=== PATIENT | male | born 1960 | race Caucasian/White ===

== ENCOUNTER 2022-08-16 19:35 | Inpatient (IN) | payer MEDICARE, SELFPAY ==
[2022-08-16 19:45] VITALS: BP 150/89; PULSE 91; RESP 16; TEMP 37.3; O2SAT 97; BMI 22.3
--- NOTE | 2022-08-16 19:57 | ED.NAVMDI1 ---
HPI - Nausea/Vomiting/Diarrhea General Chief complaint: Nausea/Vomiting/Diarrhea Stated complaint: DIARRHEA Time Seen by Provider: 08/16/22 19:57 Source: patient Mode of arrival: ambulance Limitations: physical limitation Limitations comment: contracted due to MS History of Present Illness HPI Narrative: pt presenting to us with the diarrhea with no vomiting no abdominal pain and no decreased by mouth intake, the patient have history of C. difficile that was treated in June and he still continued to have symptoms since then but over the last few days it got worse going up to ten bouts of diarrhea daily and his cannot take care of him at home by herself The main concern with home care the patient had no fever no abdominal pain there was no blood or mucus in stool Review of systems otherwise negative Related Data Home Medications Medication Instructions Recorded Confirmed acetaminophen 325 mg capsule 650 mg PO Q6H PRN pain 08/17/22 08/17/22 (Tylenol) aspirin 81 mg tablet,delayed 81 mg PO DAILY 08/17/22 08/17/22 release (Adult Aspirin Regimen) baclofen 20 mg tablet 20 mg PO BID 08/17/22 08/17/22 calcium carbonate-vitamin D3 See Rx Instructions PO DAILY 08/17/22 08/17/22 fluoxetine 20 mg capsule 20 mg PO DAILY 08/17/22 08/17/22 lisinopril 20 1 tab PO DAILY 08/17/22 08/17/22 mg-hydrochlorothiazide 25 mg tablet naproxen sodium 220 mg capsule 220 mg PO DAILY 08/17/22 08/17/22 (Aleve) oxybutynin chloride 5 mg tablet 5 mg PO DAILY 08/17/22 08/17/22 tizanidine 4 mg tablet 4 mg PO DAILY 08/17/22 08/17/22 tramadol 50 mg tablet 50 mg PO Q6H PRN pain 08/17/22 08/17/22 vitamin B complex (B 1 tab PO DAILY 08/17/22 08/17/22 Complex-Vitamin B12 tablet) Allergies Allergy/AdvReac Type Severity Reaction Status Date / Time No Known Drug Allergies Allergy Verified 08/16/22 19:50 Review of Systems ROS Status of ROS 10 or more systems reviewed and unremarkable except as noted in history and below PFSH PFSH Social History Highest level of school completed/degree received: high school graduate Exam Constitutional Vital Signs - 24 hr 08/16/22 19:45 08/16/22 20:52 08/16/22 20:53 Temperature 99.2 F Pulse Rate [Monitor] 91 H 90 Respiratory Rate 16 16 Blood Pressure [Right Arm] 150/89 H 129/81 H Pulse Oximetry 97 96 96 Oxygen Delivery Method Room Air Room Air Room Air 08/16/22 21:52 08/17/22 00:15 Temperature Pulse Rate [Monitor] 88 90 Respiratory Rate 16 16 Blood Pressure [Right Arm] 142/84 H 133/81 H Pulse Oximetry 97 96 Oxygen Delivery Method Room Air Room Air Psych Other: Nurses notes and vital signs reviewed and patient is not hypoxic. General: Well-appearing and in no apparent distress. Skin: Warm, dry, no pallor noted. No rash. Head: Normocephalic, atraumatic. Neck: Supple, non-tender. Eye: Pupils are equal, round and EOMI. No scleral icterus. Ears, Nose, Mouth, and Throat: TM are clear, no nasal mucosal hypertrophy. Oral mucosa is moist, no posterior oropharynx erythema, uvula is mid-line Cardiovascular: Regular Rate and Rhythm without murmur, gallop or rub. Respiratory: No accessory muscle use or respiratory distress. Lungs are clear to auscultation, no wheezing, rales or rhonchi Chest Wall: no tenderness Back: No midline thoracic or lumbar vertebral tenderness. No CVA tenderness Musculoskeletal: normal ROM, no calf or popliteal tenderness, no lower extremity edema/swelling GI: Abdomen is soft, non-distended. Normal bowel sounds. No masses appreciated. No tenderness to palpation. No rebound, guarding, or rigidity noted. Neurological: A&O x4. No cranial nerve dysfunction observed. No truncal ataxia. Moves all extremities. Sensation intact. Psychiatric: Cooperative and interactive. Normal mood and affect. Course Vital Signs Vital signs: Vital Signs Temperature 99.2 F 08/16/22 19:45 Pulse Rate 91 H 08/16/22 19:45 Respiratory Rate 16 08/16/22 19:45 Blood Pressure 150/89 H 08/16/22 19:45 Pulse Oximetry 97 08/16/22 19:45 Oxygen Delivery Method Room Air 08/16/22 19:45 Temperature 97.7 F 08/17/22 00:36 Pulse Rate 90 08/17/22 00:36 Respiratory Rate 20 08/17/22 00:36 Blood Pressure 125/78 H 08/17/22 00:36 Pulse Oximetry 93 L 08/17/22 00:36 Oxygen Delivery Method Room Air 08/17/22 00:36 MDM - Nausea/Vomiting/Diarrhea MDM Narrative Medical decision making narrative: the patient presented to us with diarrhea that has been chronic since June but got worse over the last few days to the point that his is not able to take care of him and he is not able to keep up with the diarrhea at home Patient as CBC and chemistry showed no acute significant pathology except for leukocytosis he was started and pill Lab Data Labs: Lab Results 08/16/22 08/16/22 Range/Units 20:19 22:50 WBC 14.7 H (4.0-11.0) 10^3/uL RBC 4.57 L (4.70-6.10) 10^6/uL Hgb 13.4 L (14.0-18.0) g/dL Hct 39.6 L (42.0-54.0) % MCV 86.7 (80.0-94.0) fL MCH 29.3 (25.9-34.0) pg MCHC 33.8 (29.9-35.2) g/dL RDW 12.9 (11.0-15.0) % Plt Count 245 (150-450) 10^3/uL MPV 9.4 L (9.5-13.5) fL Neut % (Auto) 75.8 H (43.0-75.0) % Lymph % (Auto) 8.5 L (20.5-60.0) % [place] % (Auto) 9.8 (1.7-12.0) % Eos % (Auto) 2.5 (0.9-7.0) % Baso % (Auto) 0.6 (0.2-2.0) % Neut # (Auto) 11.2 H (1.4-6.5) 10^3/uL Lymph # (Auto) 1.3 (1.2-3.8) 10^3/uL [place] # (Auto) 1.4 H (0.3-0.8) 10^3/uL Eos # (Auto) 0.4 (0.0-0.7) 10^3/uL Baso # (Auto) 0.1 (0.0-0.1) 10^3/uL Abs Immat Gran (auto) 0.41 H (0.00-0.03) 10^3/uL Imm/Tot Granulo (auto) 2.8 H (0.0-0.5) % Sodium 133 L (136-145) mmol/L Potassium 3.6 (3.5-5.1) mmol/L Chloride 97 L (98-107) mmol/L Carbon Dioxide 30.8 (21.0-32.0) mmol/L Anion Gap 8.8 BUN 13.0 (7.0-18.0) mg/dL Creatinine 0.86 (0.70-1.30) mg/dL Est GFR ( Amer) >60 (>=60) Est GFR (Non-Af Amer) >60 (>=60) BUN/Creatinine Ratio 15.1 Glucose 97 (74-106) mg/dL Lactate 0.9 (0.4-2.0) mmol/L Calcium 8.7 (8.5-10.1) mg/dL Total Bilirubin 0.4 (0.2-1.0) mg/dL AST 12 L (15-37) U/L ALT 14 L (16-63) U/L Alkaline Phosphatase 74 (46-116) U/L Total Protein 6.1 L (6.4-8.2) g/dL Albumin 2.8 L (3.4-5.0) g/dL Globulin 3.3 g/dL Albumin/Globulin Ratio 0.8 Lipase 51.0 L (73.0-393.0) U/L Urine Color Lt. yellow (YELLOW) Urine Clarity Clear (CLEAR) Urine pH 6.0 (5.0-9.0) Ur Specific [place] 1.015 (1.005-1.025) Urine Protein Negative (NEG/TRACE) mg/dL Urine Glucose (UA) Negative (NEGATIVE) mg/dL Urine Ketones Trace A (NEGATIVE) mg/dL Urine Occult Blood Negative (NEGATIVE) Urine Nitrite Negative (NEGATIVE) Urine Bilirubin Negative (NEGATIVE) Urine Urobilinogen 0.2 (0.2-1.0) EU/dL Ur Leukocyte Esterase Negative (NEGATIVE) Discharge Plan Discharge Chief Complaint: Nausea/Vomiting/Diarrhea Patient Disposition: Admitted As Inpatient Time of Disposition Decision: 23:00 Condition: Fair Discharge Date/Time: 08/17/22 00:30
--- NOTE | 2022-08-16 20:01 | PC.NURSE ---
Started by EMS.
[2022-08-16 20:38] LABS: Basophils Absolute Auto 0.1 10^3/uL (0.0-0.1); Basophils Percent Auto 0.6 % (0.2-2.0); Eosinophils Absolute Auto 0.4 10^3/uL (0.0-0.7); Eosinophils Percent Auto 2.5 % (0.9-7.0); Hematocrit 39.6 % (42.0-54.0); Hemoglobin 13.4 g/dL (14.0-18.0); Immature Granulocytes Abs Auto 0.41 10^3/uL (0.00-0.03); Immature Granulocytes Pct Auto 2.8 % (0.0-0.5); Lymphocytes Absolute Auto 1.3 10^3/uL (1.2-3.8); Lymphocytes Percent Auto 8.5 % (20.5-60.0); Mean Corpuscular HGB Conc 33.8 g/dL (29.9-35.2); Mean Corpuscular Hemoglobin 29.3 pg (25.9-34.0); Mean Corpuscular Volume 86.7 fL (80.0-94.0); Mean Platelet Volume 9.4 fL (9.5-13.5); Monocytes Absolute Auto 1.4 10^3/uL (0.3-0.8); Monocytes Percent Auto 9.8 % (1.7-12.0); Neutrophils Absolute Auto 11.2 10^3/uL (1.4-6.5); Neutrophils Percent Auto 75.8 % (43.0-75.0); Platelet Count 245 10^3/uL (150-450); Red Blood Count 4.57 10^6/uL (4.70-6.10); Red Cell Distribution Width 12.9 % (11.0-15.0); White Blood Count 14.7 10^3/uL (4.0-11.0)
[2022-08-16] MEDS: 0.9 % SODIUM CHLORIDE 1,000 ML 999 ML IV (20:40)
[2022-08-16 20:50] LABS: Alanine Aminotransferase 14 U/L (16-63); Albumin Globulin Ratio 0.8; Albumin Level 2.8 g/dL (3.4-5.0); Alkaline Phosphatase 74 U/L (46-116); Anion Gap 8.8; Aspartate Amino Transferase 12 U/L (15-37); BUN Creatinine Ratio 15.1; Bilirubin Total 0.4 mg/dL (0.2-1.0); Calcium 8.7 mg/dL (8.5-10.1); Carbon Dioxide 30.8 mmol/L (21.0-32.0); Chloride 97 mmol/L (98-107); Estimated GFR (African America >60 (>=60); Estimated GFR (Non-African Ame >60 (>=60); Globulin 3.3 g/dL; Glucose 97 mg/dL (74-106); Potassium 3.6 mmol/L (3.5-5.1); Sodium 133 mmol/L (136-145); Total Protein 6.1 g/dL (6.4-8.2)
[2022-08-16 20:52] VITALS: BP 129/81; PULSE 90; RESP 16; O2SAT 96
[2022-08-16 20:53] VITALS: O2SAT 96
[2022-08-16 20:54] LABS: Lactate/Lactic Acid 0.9 mmol/L (0.4-2.0)
[2022-08-16 21:52] VITALS: BP 142/84; PULSE 88; RESP 16; O2SAT 97
[2022-08-16 23:30] LABS: Bilirubin Urine NEGATIVE (NEGATIVE); Blood Urine NEGATIVE (NEGATIVE); Clarity Urine CLEAR (CLEAR); Color Urine LT. YELLOW (YELLOW); Glucose Urine UA NEGATIVE (NEGATIVE); Ketones Urine TRACE mg/dL (NEGATIVE); Leukocyte Esterase Urine NEGATIVE (NEGATIVE); Nitrite Urine NEGATIVE (NEGATIVE); Protein Urine NEGATIVE (NEG/TRACE); Specific Gravity Urine 1.015 (1.005-1.025); Urobilinogen Urine 0.2 EU/dL (0.2-1.0)
[2022-08-16 23:33] LABS: Urine Microscopic Indicated NO
[2022-08-17] VITALS (9 sets, daily range): BP systolic 68–146; BP diastolic 48–87; PULSE 67–93; RESP 14–20; TEMP 36.5–36.8; O2SAT 93–97; BMI 20.1
--- NOTE | 2022-08-17 00:12 | PC.NURSE ---
Has has 3 diarrhea stools since admission. Gela care provided
--- NOTE | 2022-08-17 01:15 | ED_ITS ---
HPI - Nausea/Vomiting/Diarrhea General Chief complaint: Nausea/Vomiting/Diarrhea Stated complaint: DIARRHEA Time Seen by Provider: 08/16/22 19:57 Source: patient Mode of arrival: ambulance Limitations: physical limitation History of Present Illness HPI Narrative: pt presenting to us with the diarrhea with no vomiting no abdominal pain and no decreased by mouth intake, the patient have history of C. difficile that was treated in June and he still continued to have symptoms since then but over the last few days it got worse going up to ten bouts of diarrhea daily and his cannot take care of him at home by herself The main concern with home care the patient had no fever no abdominal pain there was no blood or mucus in stool Review of systems otherwise negative Related Data Home Medications Medication Instructions Recorded Confirmed acetaminophen 325 mg capsule 650 mg PO Q6H PRN pain 08/17/22 08/17/22 (Tylenol) aspirin 81 mg tablet,delayed 81 mg PO DAILY 08/17/22 08/17/22 release (Adult Aspirin Regimen) baclofen 20 mg tablet 20 mg PO BID 08/17/22 08/17/22 calcium carbonate-vitamin D3 See Rx Instructions PO DAILY 08/17/22 08/17/22 fluoxetine 20 mg capsule 20 mg PO DAILY 08/17/22 08/17/22 lisinopril 20 1 tab PO DAILY 08/17/22 08/17/22 mg-hydrochlorothiazide 25 mg tablet naproxen sodium 220 mg capsule 220 mg PO DAILY 08/17/22 08/17/22 (Aleve) oxybutynin chloride 5 mg tablet 5 mg PO DAILY 08/17/22 08/17/22 tizanidine 4 mg tablet 4 mg PO DAILY 08/17/22 08/17/22 tramadol 50 mg tablet 50 mg PO Q6H PRN pain 08/17/22 08/17/22 vitamin B complex (B 1 tab PO DAILY 08/17/22 08/17/22 Complex-Vitamin B12 tablet) Allergies Allergy/AdvReac Type Severity Reaction Status Date / Time No Known Drug Allergies Allergy Verified 08/16/22 19:50 Review of Systems ROS Status of ROS 10 or more systems reviewed and unremarkable except as noted in history and below [facility] Medical History (Updated 08/17/22 @ 01:14 by Lindsey Tovar MD) Family History (Updated 08/17/22 @ 01:10 by Lynda Albright) Family/Other Family history of CHF (congestive heart failure) Other Family history of myocardial infarction Family history of stroke Social History (Updated 08/17/22 @ 01:09 by Lynda Albright) Within the past year, how often did you have a drink containing alcohol: never Score interpretation: A score less than 4 is consistent with normal alcohol consumption. Smoking status: Never smoker Non-prescribed substance use: denies use Previous occupational history: disabled Highest level of school completed/degree received: high school graduate Are you now , , , , never or living with a partner: In a typical week, how many times do you talk on the telephone with family, friends, or neighbors: 3 or more times per week How often do you get together with friends or relatives: 3 or more times per week How often do you attend caodaism or synagogue services: 4 or more times per year Do you belong to any clubs or organizations such as caodaism groups unions, [employer] or athletic groups, or school groups: yes Total score: 4 Score interpretation: A score of greater than or equal to 2 indicates the lowest level of social isolation. Little interest or pleasure in doing things: not at all Feeling down, depressed, or hopeless: not at all Feel stressed/tense/nervous/anxious/difficulty sleeping: not at all Do you think of yourself as: straight/heterosexual Gender Identity: male Exam Narrative Exam Narrative: Nurses notes and vital signs reviewed and patient is not hypoxic. General: Well-appearing and in no apparent distress. Skin: Warm, dry, no pallor noted. No rash. Head: Normocephalic, atraumatic. Neck: Supple, non-tender. Eye: Pupils are equal, round and EOMI. No scleral icterus. Ears, Nose, Mouth, and Throat: TM are clear, no nasal mucosal hypertrophy. Oral mucosa is moist, no posterior oropharynx erythema, uvula is mid-line Cardiovascular: Regular Rate and Rhythm without murmur, gallop or rub. Respiratory: No accessory muscle use or respiratory distress. Lungs are clear to auscultation, no wheezing, rales or rhonchi Chest Wall: no tenderness Back: No midline thoracic or lumbar vertebral tenderness. No CVA tenderness Musculoskeletal: normal ROM, no calf or popliteal tenderness, no lower extremity edema/swelling GI: Abdomen is soft, non-distended. Normal bowel sounds. No masses appreciated. No tenderness to palpation. No rebound, guarding, or rigidity noted. Neurological: A&O x4. No cranial nerve dysfunction observed. No truncal ataxia. Moves all extremities. Sensation intact. Psychiatric: Cooperative and interactive. Normal mood and affect. Constitutional Vital Signs - 24 hr 08/16/22 19:45 08/16/22 20:52 08/16/22 20:53 Temperature 99.2 F Pulse Rate [Monitor] 91 H 90 Respiratory Rate 16 16 Blood Pressure [Right Arm] 150/89 H 129/81 H Pulse Oximetry 97 96 96 Oxygen Delivery Method Room Air Room Air Room Air 08/16/22 21:52 08/17/22 00:15 Temperature Pulse Rate [Monitor] 88 90 Respiratory Rate 16 16 Blood Pressure [Right Arm] 142/84 H 133/81 H Pulse Oximetry 97 96 Oxygen Delivery Method Room Air Room Air Course Vital Signs Vital signs: Vital Signs Temperature 99.2 F 08/16/22 19:45 Pulse Rate 91 H 08/16/22 19:45 Respiratory Rate 16 08/16/22 19:45 Blood Pressure 150/89 H 08/16/22 19:45 Pulse Oximetry 97 08/16/22 19:45 Oxygen Delivery Method Room Air 08/16/22 19:45 Temperature 97.7 F 08/17/22 00:36 Pulse Rate 90 08/17/22 00:36 Respiratory Rate 20 08/17/22 00:36 Blood Pressure 125/78 H 08/17/22 00:36 Pulse Oximetry 93 L 08/17/22 00:36 Oxygen Delivery Method Room Air 08/17/22 00:36 MDM - Nausea/Vomiting/Diarrhea MDM Narrative Medical decision making narrative: the patient presented to us with diarrhea that has been chronic since June but got worse over the last few days to the point that his is not able to take care of him and he is not able to keep up with the diarrhea at home Patient as CBC and chemistry showed no acute significant pathology except for leukocytosis pt will be admitted----case discussed with Dr Grissom and will be admitted under Dr Lee Lab Data Labs: Lab Results 08/16/22 08/16/22 Range/Units 20:19 22:50 WBC 14.7 H (4.0-11.0) 10^3/uL RBC 4.57 L (4.70-6.10) 10^6/uL Hgb 13.4 L (14.0-18.0) g/dL Hct 39.6 L (42.0-54.0) % MCV 86.7 (80.0-94.0) fL MCH 29.3 (25.9-34.0) pg MCHC 33.8 (29.9-35.2) g/dL RDW 12.9 (11.0-15.0) % Plt Count 245 (150-450) 10^3/uL MPV 9.4 L (9.5-13.5) fL Neut % (Auto) 75.8 H (43.0-75.0) % Lymph % (Auto) 8.5 L (20.5-60.0) % [place] % (Auto) 9.8 (1.7-12.0) % Eos % (Auto) 2.5 (0.9-7.0) % Baso % (Auto) 0.6 (0.2-2.0) % Neut # (Auto) 11.2 H (1.4-6.5) 10^3/uL Lymph # (Auto) 1.3 (1.2-3.8) 10^3/uL [place] # (Auto) 1.4 H (0.3-0.8) 10^3/uL Eos # (Auto) 0.4 (0.0-0.7) 10^3/uL Baso # (Auto) 0.1 (0.0-0.1) 10^3/uL Abs Immat Gran (auto) 0.41 H (0.00-0.03) 10^3/uL Imm/Tot Granulo (auto) 2.8 H (0.0-0.5) % Sodium 133 L (136-145) mmol/L Potassium 3.6 (3.5-5.1) mmol/L Chloride 97 L (98-107) mmol/L Carbon Dioxide 30.8 (21.0-32.0) mmol/L Anion Gap 8.8 BUN 13.0 (7.0-18.0) mg/dL Creatinine 0.86 (0.70-1.30) mg/dL Est GFR ( Amer) >60 (>=60) Est GFR (Non-Af Amer) >60 (>=60) BUN/Creatinine Ratio 15.1 Glucose 97 (74-106) mg/dL Lactate 0.9 (0.4-2.0) mmol/L Calcium 8.7 (8.5-10.1) mg/dL Total Bilirubin 0.4 (0.2-1.0) mg/dL AST 12 L (15-37) U/L ALT 14 L (16-63) U/L Alkaline Phosphatase 74 (46-116) U/L Total Protein 6.1 L (6.4-8.2) g/dL Albumin 2.8 L (3.4-5.0) g/dL Globulin 3.3 g/dL Albumin/Globulin Ratio 0.8 Lipase 51.0 L (73.0-393.0) U/L Urine Color Lt. yellow (YELLOW) Urine Clarity Clear (CLEAR) Urine pH 6.0 (5.0-9.0) Ur Specific [place] 1.015 (1.005-1.025) Urine Protein Negative (NEG/TRACE) mg/dL Urine Glucose (UA) Negative (NEGATIVE) mg/dL Urine Ketones Trace A (NEGATIVE) mg/dL Urine Occult Blood Negative (NEGATIVE) Urine Nitrite Negative (NEGATIVE) Urine Bilirubin Negative (NEGATIVE) Urine Urobilinogen 0.2 (0.2-1.0) EU/dL Ur Leukocyte Esterase Negative (NEGATIVE) Discharge Plan Discharge Chief Complaint: Nausea/Vomiting/Diarrhea Clinical Impression: C. difficile colitis Patient Disposition: Admitted As Inpatient Time of Disposition Decision: 23:00 Condition: Fair Discharge Date/Time: 08/17/22 00:30
--- NOTE | 2022-08-17 01:18 | ED.NAVMDI1 ---
HPI - Nausea/Vomiting/Diarrhea General Chief complaint: Nausea/Vomiting/Diarrhea Stated complaint: DIARRHEA Time Seen by Provider: 08/16/22 19:57 Source: patient Mode of arrival: ambulance Limitations: physical limitation Limitations comment: contracted due to MS Related Data Home Medications Medication Instructions Recorded Confirmed acetaminophen 325 mg capsule 650 mg PO Q6H PRN pain 08/17/22 08/17/22 (Tylenol) aspirin 81 mg tablet,delayed 81 mg PO DAILY 08/17/22 08/17/22 release (Adult Aspirin Regimen) baclofen 20 mg tablet 20 mg PO BID 08/17/22 08/17/22 calcium carbonate-vitamin D3 See Rx Instructions PO DAILY 08/17/22 08/17/22 fluoxetine 20 mg capsule 20 mg PO DAILY 08/17/22 08/17/22 lisinopril 20 1 tab PO DAILY 08/17/22 08/17/22 mg-hydrochlorothiazide 25 mg tablet naproxen sodium 220 mg capsule 220 mg PO DAILY 08/17/22 08/17/22 (Aleve) oxybutynin chloride 5 mg tablet 5 mg PO DAILY 08/17/22 08/17/22 tizanidine 4 mg tablet 4 mg PO DAILY 08/17/22 08/17/22 tramadol 50 mg tablet 50 mg PO Q6H PRN pain 08/17/22 08/17/22 vitamin B complex (B 1 tab PO DAILY 08/17/22 08/17/22 Complex-Vitamin B12 tablet) Allergies Allergy/AdvReac Type Severity Reaction Status Date / Time No Known Drug Allergies Allergy Verified 08/16/22 19:50 [facility] Medical History (Updated 08/17/22 @ 01:14 by Lindsey Tovar MD) Family History (Updated 08/17/22 @ 01:10 by Lynda Albright) Family/Other Family history of CHF (congestive heart failure) Other Family history of myocardial infarction Family history of stroke Social History (Updated 08/17/22 @ 01:09 by Lynda Albrihgt) Within the past year, how often did you have a drink containing alcohol: never Score interpretation: A score less than 4 is consistent with normal alcohol consumption. Smoking status: Never smoker Non-prescribed substance use: denies use Previous occupational history: disabled Highest level of school completed/degree received: high school graduate Are you now , , , , never or living with a partner: In a typical week, how many times do you talk on the telephone with family, friends, or neighbors: 3 or more times per week How often do you get together with friends or relatives: 3 or more times per week How often do you attend jehovah's witness or yarsani services: 4 or more times per year Do you belong to any clubs or organizations such as jehovah's witness groups unions, fraternal or athletic groups, or school groups: yes Total score: 4 Score interpretation: A score of greater than or equal to 2 indicates the lowest level of social isolation. Little interest or pleasure in doing things: not at all Feeling down, depressed, or hopeless: not at all Feel stressed/tense/nervous/anxious/difficulty sleeping: not at all Do you think of yourself as: straight/heterosexual Gender Identity: male Exam Constitutional Vital Signs - 24 hr 08/16/22 19:45 08/16/22 20:52 08/16/22 20:53 Temperature 99.2 F Pulse Rate [Monitor] 91 H 90 Respiratory Rate 16 16 Blood Pressure [Right Arm] 150/89 H 129/81 H Pulse Oximetry 97 96 96 Oxygen Delivery Method Room Air Room Air Room Air 08/16/22 21:52 08/17/22 00:15 Temperature Pulse Rate [Monitor] 88 90 Respiratory Rate 16 16 Blood Pressure [Right Arm] 142/84 H 133/81 H Pulse Oximetry 97 96 Oxygen Delivery Method Room Air Room Air Course Vital Signs Vital signs: Vital Signs Temperature 99.2 F 08/16/22 19:45 Pulse Rate 91 H 08/16/22 19:45 Respiratory Rate 16 08/16/22 19:45 Blood Pressure 150/89 H 08/16/22 19:45 Pulse Oximetry 97 08/16/22 19:45 Oxygen Delivery Method Room Air 08/16/22 19:45 Temperature 97.7 F 08/17/22 00:36 Pulse Rate 90 08/17/22 00:36 Respiratory Rate 20 08/17/22 00:36 Blood Pressure 125/78 H 08/17/22 00:36 Pulse Oximetry 93 L 08/17/22 00:36 Oxygen Delivery Method Room Air 08/17/22 00:36 MDM - Nausea/Vomiting/Diarrhea Lab Data Labs: Lab Results 08/16/22 08/16/22 Range/Units 20:19 22:50 WBC 14.7 H (4.0-11.0) 10^3/uL RBC 4.57 L (4.70-6.10) 10^6/uL Hgb 13.4 L (14.0-18.0) g/dL Hct 39.6 L (42.0-54.0) % MCV 86.7 (80.0-94.0) fL MCH 29.3 (25.9-34.0) pg MCHC 33.8 (29.9-35.2) g/dL RDW 12.9 (11.0-15.0) % Plt Count 245 (150-450) 10^3/uL MPV 9.4 L (9.5-13.5) fL Neut % (Auto) 75.8 H (43.0-75.0) % Lymph % (Auto) 8.5 L (20.5-60.0) % [place] % (Auto) 9.8 (1.7-12.0) % Eos % (Auto) 2.5 (0.9-7.0) % Baso % (Auto) 0.6 (0.2-2.0) % Neut # (Auto) 11.2 H (1.4-6.5) 10^3/uL Lymph # (Auto) 1.3 (1.2-3.8) 10^3/uL [place] # (Auto) 1.4 H (0.3-0.8) 10^3/uL Eos # (Auto) 0.4 (0.0-0.7) 10^3/uL Baso # (Auto) 0.1 (0.0-0.1) 10^3/uL Abs Immat Gran (auto) 0.41 H (0.00-0.03) 10^3/uL Imm/Tot Granulo (auto) 2.8 H (0.0-0.5) % Sodium 133 L (136-145) mmol/L Potassium 3.6 (3.5-5.1) mmol/L Chloride 97 L (98-107) mmol/L Carbon Dioxide 30.8 (21.0-32.0) mmol/L Anion Gap 8.8 BUN 13.0 (7.0-18.0) mg/dL Creatinine 0.86 (0.70-1.30) mg/dL Est GFR ( Amer) >60 (>=60) Est GFR (Non-Af Amer) >60 (>=60) BUN/Creatinine Ratio 15.1 Glucose 97 (74-106) mg/dL Lactate 0.9 (0.4-2.0) mmol/L Calcium 8.7 (8.5-10.1) mg/dL Total Bilirubin 0.4 (0.2-1.0) mg/dL AST 12 L (15-37) U/L ALT 14 L (16-63) U/L Alkaline Phosphatase 74 (46-116) U/L Total Protein 6.1 L (6.4-8.2) g/dL Albumin 2.8 L (3.4-5.0) g/dL Globulin 3.3 g/dL Albumin/Globulin Ratio 0.8 Lipase 51.0 L (73.0-393.0) U/L Urine Color Lt. yellow (YELLOW) Urine Clarity Clear (CLEAR) Urine pH 6.0 (5.0-9.0) Ur Specific [place] 1.015 (1.005-1.025) Urine Protein Negative (NEG/TRACE) mg/dL Urine Glucose (UA) Negative (NEGATIVE) mg/dL Urine Ketones Trace A (NEGATIVE) mg/dL Urine Occult Blood Negative (NEGATIVE) Urine Nitrite Negative (NEGATIVE) Urine Bilirubin Negative (NEGATIVE) Urine Urobilinogen 0.2 (0.2-1.0) EU/dL Ur Leukocyte Esterase Negative (NEGATIVE) Discharge Plan Discharge Chief Complaint: Nausea/Vomiting/Diarrhea Clinical Impression: C. difficile colitis Patient Disposition: Admitted As Inpatient Time of Disposition Decision: 23:00 Condition: Fair Discharge Date/Time: 08/17/22 00:30
--- NOTE | 2022-08-17 02:28 | P.PN_ITS ---
Progress Note: Subjective Subjective Interval history: CC: Diarrhea HPI: 62 year old male with history of multiple sclerosis, bed bound with contractures, weakness and chronic pain/muscle spasms, hypertension and C .diff 2 months ago who presents with persistent diarrhea. apparently patient completed treatment for C diff without improvement in diarrhea, continues to have 5-10 bowels/day, watery and sometimes mushy, no abdominal pain, nausea, vomiting, diarrhea. (caregiver) unable to continue take care of him. Was given fiber to bulk his stools without benefit. denies any abdominal surgeries or history of IBD. in the Er, vitals stable, labs remarkable for WBC ~ 15k. given fluids ROS: negative except for HPI Past medical/surgical history: no surgeries, MS, HTN, chronic pain Shx: lives with (caregiver), denies tobacco, etoh use FHx: non-contributory to today visit. Exam Narrative Exam Narrative: GEN: lying in bed, AO x3 no distress HEENT: NC/AT, trachea midline CVS: RRR, no edema Lungs: normal respiratory effort, bilateral air entry Gi: soft, non tender Neuro: generalized weakness, strength better right arm. contractures skin: healing sacral pressure sore Constitutional Vital Signs - 24 hr 08/16/22 19:45 08/16/22 20:52 08/16/22 20:53 Temperature 99.2 F Pulse Rate Pulse Rate [Monitor] 91 H 90 Respiratory Rate 16 16 Blood Pressure [Right Arm] 150/89 H 129/81 H Pulse Oximetry 97 96 96 Oxygen Delivery Method Room Air Room Air Room Air 08/16/22 21:52 08/17/22 00:15 08/17/22 00:36 Temperature 97.7 F Pulse Rate 90 Pulse Rate [Monitor] 88 90 Respiratory Rate 16 16 20 Blood Pressure [Right Arm] 142/84 H 133/81 H 125/78 H Pulse Oximetry 97 96 93 L Oxygen Delivery Method Room Air Room Air Room Air 08/17/22 00:36 Temperature Pulse Rate Pulse Rate [Monitor] Respiratory Rate Blood Pressure [Right Arm] Pulse Oximetry Oxygen Delivery Method Room Air Progress Note: Objective Labs Labs: Short CBC 08/16/22 Range/Units 20:19 WBC 14.7 H (4.0-11.0) 10^3/uL Hgb 13.4 L (14.0-18.0) g/dL Hct 39.6 L (42.0-54.0) % Plt Count 245 (150-450) 10^3/uL BMP 08/16/22 20:19 Sodium 133 L Potassium 3.6 Chloride 97 L Carbon Dioxide 30.8 BUN 13.0 Creatinine 0.86 Glucose 97 Calcium 8.7 Liver Function 08/16/22 Range/Units 20:19 Total Bilirubin 0.4 (0.2-1.0) mg/dL AST 12 L (15-37) U/L ALT 14 L (16-63) U/L Alkaline Phosphatase 74 (46-116) U/L Albumin 2.8 L (3.4-5.0) g/dL Urine 08/16/22 Range/Units 22:50 Urine Color Lt. yellow (YELLOW) Urine Clarity Clear (CLEAR) Urine pH 6.0 (5.0-9.0) Ur Specific [place] 1.015 (1.005-1.025) Urine Protein Negative (NEG/TRACE) mg/dL Urine Glucose (UA) Negative (NEGATIVE) mg/dL Progress Note: A&P Assessment and Plan (1) C. difficile diarrhea: Assessment and Plan: check gi panel. consider ct abdomen start empiric po vancomycin. C diff precautions (2) Hypertension: Assessment and Plan: resume home BP meds with hold parameters (3) Multiple sclerosis: Assessment and Plan: bed bound, superficial back sore healing (4) C. difficile colitis: Plan DVT ppx- lovenox Full Code Home medications ordered communications: discussed with ER doctor, bedside nurse, patient updated of plan of care, all questions answered to their satisfaction disposition- home Vs ECF when medically stable telemedicine clause: As the provider of this telehealth evaluation, requested by the patient evaluating physician, I attest that i introduced myself to the patient, provided my credentials and determined that telemedicine via a [address] interactive audio and video platform is an appropriate and effective means of providing this service. I reviewed the patient chart and had a discussion with the member of the patient treatment team. the patient and I mutually agreed with continuation of this evaluation via telemedicine. the patient consented for the telemedicine evaluation. this virtual encounter was taken place from [place] and lasted about 30 minutes, the nurse was present during the entire time of the encounter and was able to move the stethoscope in appropriate directions. the patient was evaluated at 0210 [facility] I conducted this encounter from [[place] ] via secure live, [id number] video conference with the patient, CHARGE TEST-CHARGES located at [facility]. Prior to the interview, the risks and benefits of telemedicine were discussed with the patient and verbal consent was obtained.
[2022-08-17] MEDS: LACTATED RINGER'S SOLUTION 1,000 ML 125 ML IV ×3 (04:37→21:42)
--- NOTE | 2022-08-17 08:29 | CT_ITS ---
[address] [address] Patient Name: SARINA RODRIGUEZ MRN: [id number] date: 1960 Sex: M Assigned Patient Location: [place] Current Patient Location: [place] Accession/Order Number: [id number] Exam Date: 08/17/2022 14:10 Report Date: 08/17/2022 15:05 At the request of: SHAIKH JOSÉ Procedure: CT abdomen pelvis w con EXAM: CT abdomen pelvis w con HISTORY: Abdominal pain COMPARISON: 07/15/2022 TECHNIQUE: Axial CT imaging was performed through the abdomen and pelvis with intravenous contrast. Multiplanar reformats were performed. Dose reduction techniques were achieved by using automated exposure control and/or adjustment of mA and/or kV according to patient size and/or use of iterative reconstruction technique. FINDINGS: Lung bases: Mild, dependent opacities at the lung bases have appearance most suggestive of atelectasis. GI upper: Unremarkable. Liver: Normal size and contour. Gallbladder: No significant abnormality. No cholelithiasis. Biliary system: No intra or extrahepatic biliary ductal dilatation. Spleen: Normal size. Pancreas: Unremarkable. Adrenal glands: Normal adrenal glands. Kidneys/ureters: Normal contours. No hydronephrosis. No nephrolithiasis or ureterolithiasis. Vessels: No aneurysm. Lymph Nodes: There is a 0.9 cm left posterior perirectal lymph node (series 3, image 120). There are additional lymph nodes at the rectosigmoid junction measuring up to 1.2 cm, can be reactive or metastasis. Small bowel: No wall thickening or dilatation. Colon: Redemonstration of severe circumferential wall thickening of the rectum with mucosal thickening and surrounding fat stranding, may represent proctitis. There is a 2.5 cm intraluminal polypoid lesion arising from the anterior distal sigmoid (series 3, image 113), similar to the prior study, representing benign or malignant polyp. Correlation with sigmoidoscopy and biopsy is recommended. Appendix: No findings of appendicitis. Peritoneal cavity: No free fluid or pneumoperitoneum. Lower : Unremarkable. Bones: No acute bony abnormality. Soft tissues: No acute finding. Additional findings: None. IMPRESSION: Persistent severe circumferential wall thickening of the rectum with mucosal thickening and surrounding fat stranding, may represent proctitis. Unchanged 2.5 cm intraluminal polypoid lesion arising from the anterior distal sigmoid, representing benign or malignant polyp. Correlation with sigmoidoscopy and biopsy is recommended. Perirectal and perisigmoid lymphadenopathy measuring up to 1.2 cm, can be reactive or metastatic. . Electronically authenticated by: MARILU ANDRES Date: 08/17/2022 15:05
[2022-08-17] MEDS: ENOXAPARIN SODIUM 40 MG/0.4 ML SYRINGE SUBQ (09:30)
[2022-08-17] MEDS: OXYBUTYNIN CHLORIDE 5 MG TAB XL PO (09:31)
[2022-08-17] MEDS: L. ACIDOPHILUS/L.BULGARICUS 1 PACKET GRAN.PACK PO ×2 (09:31→21:43)
[2022-08-17] MEDS: TIZANIDINE HCL 4 MG TABLET PO (09:32)
[2022-08-17] MEDS: LISINOPRIL 20 MG TABLET PO (09:32)
[2022-08-17 09:33] LABS: Basophils Absolute Auto 0.1 10^3/uL (0.0-0.1); Basophils Percent Auto 1.2 % (0.2-2.0); Eosinophils Absolute Auto 0.6 10^3/uL (0.0-0.7); Eosinophils Percent Auto 5.8 % (0.9-7.0); Hematocrit 37.8 % (42.0-54.0); Hemoglobin 12.6 g/dL (14.0-18.0); Immature Granulocytes Abs Auto 0.05 10^3/uL (0.00-0.03); Immature Granulocytes Pct Auto 0.5 % (0.0-0.5); Lymphocytes Absolute Auto 1.7 10^3/uL (1.2-3.8); Lymphocytes Percent Auto 17.6 % (20.5-60.0); Mean Corpuscular HGB Conc 33.3 g/dL (29.9-35.2); Mean Corpuscular Hemoglobin 28.9 pg (25.9-34.0); Mean Corpuscular Volume 86.7 fL (80.0-94.0); Mean Platelet Volume 9.7 fL (9.5-13.5); Monocytes Absolute Auto 1.1 10^3/uL (0.3-0.8); Monocytes Percent Auto 10.8 % (1.7-12.0); Neutrophils Absolute Auto 6.3 10^3/uL (1.4-6.5); Neutrophils Percent Auto 64.1 % (43.0-75.0); Platelet Count 253 10^3/uL (150-450); Red Blood Count 4.36 10^6/uL (4.70-6.10); Red Cell Distribution Width 13.1 % (11.0-15.0); White Blood Count 9.8 10^3/uL (4.0-11.0)
[2022-08-17] MEDS: FLUOXETINE HCL 20 MG CAPSULE PO (09:33)
[2022-08-17] MEDS: BACLOFEN 10 MG TABLET 20 MG PO ×2 (09:33→21:43)
[2022-08-17] MEDS: ASPIRIN 81 MG TABLET.DR PO (09:33)
[2022-08-17 09:49] LABS: Alanine Aminotransferase 14 U/L (16-63); Albumin Globulin Ratio 0.8; Albumin Level 2.6 g/dL (3.4-5.0); Alkaline Phosphatase 66 U/L (46-116); Anion Gap 11.3; Aspartate Amino Transferase 11 U/L (15-37); BUN Creatinine Ratio 14.3; Bilirubin Total 0.4 mg/dL (0.2-1.0); Calcium 8.1 mg/dL (8.5-10.1); Carbon Dioxide 25.1 mmol/L (21.0-32.0); Chloride 99 mmol/L (98-107); Estimated GFR (African America >60 (>=60); Estimated GFR (Non-African Ame >60 (>=60); Globulin 3.2 g/dL; Glucose 83 mg/dL (74-106); Potassium 3.4 mmol/L (3.5-5.1); Sodium 132 mmol/L (136-145); Total Protein 5.8 g/dL (6.4-8.2)
[2022-08-17] MEDS: 0.9 % SODIUM CHLORIDE 1,000 ML 1000 ML IV ×2 (11:21→13:56)
--- NOTE | 2022-08-17 13:37 | PM.HP ---
H&P: HPI History of Present Illness Chief complaint: DIARRHEA Narrative: 62 y o male with hospital admission for C diff colitis in June reports he never fully recovered from it and continued to experience multiple bowel movements, that were watery, no blood in stool and it was slowly improving but then for past 1 week, his symptoms worsened where he would have 8-10 episodes of bowel movements. Denies nausea,vomiting or abdominal pain. Also denies fever, blood in stool. Never had colonoscopy. Earlier this morning - he developed hypotensive shock, was experiencing orthostatic symptoms, was diaphoretic and his BP was 60/40. He received 2 L IVF bolus of NS with improvement in his blood pressure and he feels sig better compared to how he was feeling earlier this morning. C diff testing is still pending. I had ordered CT abd/pelvis for him to r/o intra abdominal complications from C diff even thought it seems likely due to his benign abdominal exam. Review of Systems ROS Status of ROS 10 or more systems reviewed and unremarkable except as noted in history and below [facility] Medical History (Updated 08/17/22 @ 13:47 by Shaikh Jesus MD) Family History Family/Other Family history of CHF (congestive heart failure) Other Family history of myocardial infarction Family history of stroke Social History Within the past year, how often did you have a drink containing alcohol: never Score interpretation: A score less than 4 is consistent with normal alcohol consumption. Smoking status: Never smoker Non-prescribed substance use: denies use Previous occupational history: disabled Highest level of school completed/degree received: high school graduate Are you now , , , , never or living with a partner: In a typical week, how many times do you talk on the telephone with family, friends, or neighbors: 3 or more times per week How often do you get together with friends or relatives: 3 or more times per week How often do you attend oriental orthodox or methodist services: 4 or more times per year Do you belong to any clubs or organizations such as oriental orthodox groups unions, fraternal or athletic groups, or school groups: yes Total score: 4 Score interpretation: A score of greater than or equal to 2 indicates the lowest level of social isolation. Little interest or pleasure in doing things: not at all Feeling down, depressed, or hopeless: not at all Feel stressed/tense/nervous/anxious/difficulty sleeping: not at all Do you think of yourself as: straight/heterosexual Gender Identity: male Meds Home Medications and Allergies Home Medications Medication Instructions Recorded Confirmed Type acetaminophen 325 mg capsule 650 mg PO Q6H PRN pain 08/17/22 08/17/22 History (Tylenol) aspirin 81 mg tablet,delayed 81 mg PO DAILY 08/17/22 08/17/22 History release (Adult Aspirin Regimen) baclofen 20 mg tablet 20 mg PO BID 08/17/22 08/17/22 History calcium carbonate-vitamin D3 See Rx Instructions PO DAILY 08/17/22 08/17/22 History fluoxetine 20 mg capsule 20 mg PO DAILY 08/17/22 08/17/22 History lisinopril 20 1 tab PO DAILY 08/17/22 08/17/22 History mg-hydrochlorothiazide 25 mg tablet naproxen sodium 220 mg capsule 220 mg PO DAILY 08/17/22 08/17/22 History (Aleve) oxybutynin chloride 5 mg tablet 5 mg PO DAILY 08/17/22 08/17/22 History tizanidine 4 mg tablet 4 mg PO DAILY 08/17/22 08/17/22 History tramadol 50 mg tablet 50 mg PO Q6H PRN pain 08/17/22 08/17/22 History vitamin B complex (B 1 tab PO DAILY 08/17/22 08/17/22 History Complex-Vitamin B12 tablet) Allergies Allergy/AdvReac Type Severity Reaction Status Date / Time No Known Drug Allergies Allergy Verified 08/16/22 19:50 Exam Constitutional Vital Signs - 24 hr 08/16/22 19:45 08/16/22 20:52 08/16/22 20:53 Temperature 99.2 F Pulse Rate Pulse Rate [Monitor] 91 H 90 Respiratory Rate 16 16 Blood Pressure [Right Arm] 150/89 H 129/81 H Pulse Oximetry 97 96 96 Oxygen Delivery Method Room Air Room Air Room Air 08/16/22 21:52 08/17/22 00:15 08/17/22 00:36 Temperature 97.7 F Pulse Rate 90 Pulse Rate [Monitor] 88 90 Respiratory Rate 16 16 20 Blood Pressure [Right Arm] 142/84 H 133/81 H 125/78 H Pulse Oximetry 97 96 93 L Oxygen Delivery Method Room Air Room Air Room Air 08/17/22 00:36 08/17/22 05:37 08/17/22 11:19 Temperature 97.7 F 97.7 F Pulse Rate 93 H 67 Pulse Rate [Monitor] Respiratory Rate 20 14 Blood Pressure [Right Arm] 128/81 H 68/48 L Pulse Oximetry 94 L 97 Oxygen Delivery Method Room Air Room Air Room Air 08/17/22 12:36 Temperature Pulse Rate Pulse Rate [Monitor] Respiratory Rate Blood Pressure [Right Arm] 108/70 Pulse Oximetry Oxygen Delivery Method Documenting provider has reviewed patient's vital signs: yes General appearance: cooperative, ill appearing, frail appearing and diaphoretic Nutritional appearance: underweight Orientation/consciousness: Yes awake HENMT Common normals: normocephalic Eye Common normals: conjunctivae normal and no scleral icterus Respiratory Common normals: normal respiratory effort, no use of accessory muscles and clear to auscultation bilaterally Cardio Common normals: regular rate, regular rhythm, S1 normal heart sound, S2 normal heart sound and no murmurs GI Common normals: Normal to inspection, nondistended, normoactive bowel sounds present, soft to palpation, non-tender and no hepatosplenomegaly Extremity Other: Left UE spastic contracture from MS Right UE spasticity and developing contracture but still retains some mobility and function. Neuro Common normals: oriented x3 Meningeal signs: no meningeal signs Speech: speech normal Gait (neuro): other (bed bound, wheelchair bound) Motor exam: other (spastic contracture b/l UE, B/L LE 1/5) Psych Common normals: mental status grossly normal, thought process normal, cooperative, denies homicidal ideation and denies suicidal ideation Results Labs Labs: Short CBC 08/16/22 08/17/22 Range/Units 20:19 08:44 WBC 14.7 H 9.8 (4.0-11.0) 10^3/uL Hgb 13.4 L 12.6 L (14.0-18.0) g/dL Hct 39.6 L 37.8 L (42.0-54.0) % Plt Count 245 253 (150-450) 10^3/uL BMP 08/16/22 08/17/22 20:19 08:44 Sodium 133 L 132 L Potassium 3.6 3.4 L Chloride 97 L 99 Carbon Dioxide 30.8 25.1 BUN 13.0 9.0 Creatinine 0.86 0.63 L Glucose 97 83 Calcium 8.7 8.1 L Liver Function 08/16/22 08/17/22 Range/Units 20:19 08:44 Total Bilirubin 0.4 0.4 (0.2-1.0) mg/dL AST 12 L 11 L (15-37) U/L ALT 14 L 14 L (16-63) U/L Alkaline Phosphatase 74 66 (46-116) U/L Albumin 2.8 L 2.6 L (3.4-5.0) g/dL Urine 08/16/22 Range/Units 22:50 Urine Color Lt. yellow (YELLOW) Urine Clarity Clear (CLEAR) Urine pH 6.0 (5.0-9.0) Ur Specific [place] 1.015 (1.005-1.025) Urine Protein Negative (NEG/TRACE) mg/dL Urine Glucose (UA) Negative (NEGATIVE) mg/dL Assessment and Plan Assessment and Plan (1) C. difficile colitis: Assessment and Plan: Recent Hospital admission for C diff but diarrhea never completely resolved. C diff testing is pending. Abdominal exam is benign. But will order CT abd/pelvis to make sure there is no acute underlying intra abdominal pathology. (2) Hypovolemic shock: Assessment and Plan: Required aggressive IV fluid resuscitation. BP is improved and stable now. C/w IV hydration (3) Multiple sclerosis: Assessment and Plan: Bed bound due to b/l LE weakness, b/l UE spastic contractures. (4) Hypertension: Assessment and Plan: Hold all anti hypertensives due to low BP. Resume once BP is stable Qualifiers: Hypertension type: primary hypertension Qualified Code(s): I10 - Essential (primary) hypertension
[2022-08-17] MEDS: VANCOMYCIN HCL 7,500 MG/150 ML BOTTLE 250 MG PO ×2 (14:03→21:43)
[2022-08-17] MEDS: POTASSIUM CHLORIDE 40 MEQ in 0.9 % SODIUM CHLORIDE 250 ML 67.5 MEQ IV (14:07)
[2022-08-17 22:09] LABS: Adenovirus F 40/41 NOT DETECTED (NOT DETECTE); Astrovirus NOT DETECTED (NOT DETECTE); Campylobacter NOT DETECTED (NOT DETECTE); Cryptosporidium NOT DETECTED (NOT DETECTE); Cyclospora cayetanensis NOT DETECTED (NOT DETECTE); E coli 0157 NOT DETECTED (NOT DETECTE); Entamoeba histolytica NOT DETECTED (NOT DETECTE); Enteroaggregative E.coli NOT DETECTED (NOT DETECTE); Enteropathogenic E.coli NOT DETECTED (NOT DETECTE); Enterotoxigenic E. coli NOT DETECTED (NOT DETECTE); Giardia lamblia NOT DETECTED (NOT DETECTE); Norovirus GI/GII NOT DETECTED (NOT DETECTE); Plesiomonas shigelloides NOT DETECTED (NOT DETECTE); Rotavirus A NOT DETECTED (NOT DETECTE); Salmonella NOT DETECTED (NOT DETECTE); Sapovirus NOT DETECTED (NOT DETECTE); Shiga-like toxin-producing E.C NOT DETECTED (NOT DETECTE); Shigella/Enteroinvasive E.coli NOT DETECTED (NOT DETECTE); Vibrio NOT DETECTED (NOT DETECTE); Vibrio cholerae NOT DETECTED (NOT DETECTE); Yersinia enterocolitica NOT DETECTED (NOT DETECTE)
[2022-08-18] MEDS: VANCOMYCIN HCL 7,500 MG/150 ML BOTTLE 250 MG PO ×4 (03:33→21:18)
[2022-08-18 04:23] VITALS: BP 140/80; PULSE 86; RESP 16; TEMP 36.6; O2SAT 96
[2022-08-18] MEDS: LACTATED RINGER'S SOLUTION 1,000 ML 125 ML IV ×2 (09:20→17:09)
[2022-08-18] MEDS: L. ACIDOPHILUS/L.BULGARICUS 1 PACKET GRAN.PACK PO ×2 (09:46→21:19)
[2022-08-18] MEDS: ENOXAPARIN SODIUM 40 MG/0.4 ML SYRINGE SUBQ (09:46)
[2022-08-18] MEDS: TIZANIDINE HCL 4 MG TABLET PO (09:46)
[2022-08-18] MEDS: ASPIRIN 81 MG TABLET.DR PO (09:46)
[2022-08-18] MEDS: BACLOFEN 10 MG TABLET 20 MG PO ×2 (09:46→21:19)
[2022-08-18] MEDS: FLUOXETINE HCL 20 MG CAPSULE PO (09:46)
[2022-08-18] MEDS: OXYBUTYNIN CHLORIDE 5 MG TAB XL PO (09:47)
[2022-08-18 10:19] LABS: Basophils Absolute Auto 0.1 10^3/uL (0.0-0.1); Basophils Percent Auto 1.4 % (0.2-2.0); Eosinophils Absolute Auto 0.5 10^3/uL (0.0-0.7); Eosinophils Percent Auto 7.6 % (0.9-7.0); Hematocrit 35.1 % (42.0-54.0); Hemoglobin 12.2 g/dL (14.0-18.0); Immature Granulocytes Abs Auto 0.04 10^3/uL (0.00-0.03); Immature Granulocytes Pct Auto 0.6 % (0.0-0.5); Lymphocytes Absolute Auto 1.4 10^3/uL (1.2-3.8); Lymphocytes Percent Auto 19.6 % (20.5-60.0); Mean Corpuscular HGB Conc 34.8 g/dL (29.9-35.2); Mean Corpuscular Hemoglobin 29.3 pg (25.9-34.0); Mean Corpuscular Volume 84.4 fL (80.0-94.0); Mean Platelet Volume 9.1 fL (9.5-13.5); Monocytes Absolute Auto 0.7 10^3/uL (0.3-0.8); Monocytes Percent Auto 10.3 % (1.7-12.0); Neutrophils Absolute Auto 4.3 10^3/uL (1.4-6.5); Neutrophils Percent Auto 60.5 % (43.0-75.0); Platelet Count 239 10^3/uL (150-450); Red Blood Count 4.16 10^6/uL (4.70-6.10); Red Cell Distribution Width 12.8 % (11.0-15.0); White Blood Count 7.1 10^3/uL (4.0-11.0)
[2022-08-18 10:38] VITALS: O2SAT 96
[2022-08-18 10:44] LABS: Alanine Aminotransferase 18 U/L (16-63); Albumin Globulin Ratio 0.8; Albumin Level 2.6 g/dL (3.4-5.0); Alkaline Phosphatase 61 U/L (46-116); Aspartate Amino Transferase 12 U/L (15-37); BUN Creatinine Ratio 9.8; Bilirubin Total 0.4 mg/dL (0.2-1.0); Calcium 7.9 mg/dL (8.5-10.1); Carbon Dioxide 25.5 mmol/L (21.0-32.0); Chloride 101 mmol/L (98-107); Estimated GFR (African America >60 (>=60); Estimated GFR (Non-African Ame >60 (>=60); Globulin 3.2 g/dL; Glucose 89 mg/dL (74-106); Potassium 3.5 mmol/L (3.5-5.1); Sodium 134 mmol/L (136-145); Total Protein 5.8 g/dL (6.4-8.2)
--- NOTE | 2022-08-18 11:44 | PM.IMPN1 ---
Progress Note: A&P Assessment and Plan (1) C. difficile colitis: Assessment and Plan: Persistent diarrhea. No improvement. No nausea/vomiting or abdominal. CT abd shows proctatis. Discussed with General Surg for their input because if he had persistent C diff he would have more systemic signs and symptoms and not just diarrhea. Also typically rectal involvement only is not seen in C diff. (2) Hypovolemic shock: Assessment and Plan: resolved. BP above goal now. Started on antihypertensives. (3) Multiple sclerosis: Assessment and Plan: On baclofen for spasticity. Bed bound. B/L LE weakness, LUE spastic contracture. (4) Hypertension: Assessment and Plan: Initially hypotensive. BP above goal now. Start on Amlodipine 5 mg daily. Not using Lisinopril/HCTZ due to diarrhea. Qualifiers: Hypertension type: primary hypertension Qualified Code(s): I10 - Essential (primary) hypertension Internal Medicine - PN: Subj Subjective Interval history: Seen and examined. No overnight events. Persistent diarrhea with no improvement. No nausea/vomiting or abdominal pain Exam Constitutional Vital Signs - 24 hr 08/17/22 12:36 08/17/22 14:15 08/17/22 19:48 Temperature 97.9 F Pulse Rate 83 Respiratory Rate 16 16 Blood Pressure [Right Arm] 108/70 137/87 H Pulse Oximetry 96 Oxygen Delivery Method Room Air 08/17/22 21:58 08/18/22 04:23 08/18/22 10:38 Temperature 98.3 F 97.8 F Pulse Rate 78 86 Respiratory Rate 16 16 Blood Pressure [Right Arm] 146/85 H 140/80 H Pulse Oximetry 97 96 96 Oxygen Delivery Method Room Air Room Air Room Air Documenting provider has reviewed patient's vital signs: yes General appearance: cooperative, ill appearing, frail appearing and diaphoretic Nutritional appearance: underweight Orientation/consciousness: Yes awake HENMT Common normals: normocephalic Eye Common normals: conjunctivae normal and no scleral icterus Respiratory Common normals: normal respiratory effort, no use of accessory muscles and clear to auscultation bilaterally Cardio Common normals: regular rate, regular rhythm, S1 normal heart sound, S2 normal heart sound and no murmurs GI Common normals: Normal to inspection, nondistended, normoactive bowel sounds present, soft to palpation, non-tender and no hepatosplenomegaly Extremity Other: Left UE spastic contracture from MS Right UE spasticity and developing contracture but still retains some mobility and function. Neuro Common normals: oriented x3 Meningeal signs: no meningeal signs Speech: speech normal Gait (neuro): other (bed bound, wheelchair bound) Motor exam: other (spastic contracture b/l UE, B/L LE 1/5) Psych Common normals: mental status grossly normal, thought process normal, cooperative, denies homicidal ideation and denies suicidal ideation Internal Medicine - PN: Obj Da Labs Labs: Laboratory Results - last 24 hr 08/17/22 08/18/22 21:58 10:11 WBC 7.1 RBC 4.16 L Hgb 12.2 L Hct 35.1 L MCV 84.4 MCH 29.3 MCHC 34.8 RDW 12.8 Plt Count 239 MPV 9.1 L Neut % (Auto) 60.5 Lymph % (Auto) 19.6 L [place] % (Auto) 10.3 Eos % (Auto) 7.6 H Baso % (Auto) 1.4 Neut # (Auto) 4.3 Lymph # (Auto) 1.4 [place] # (Auto) 0.7 Eos # (Auto) 0.5 Baso # (Auto) 0.1 Abs Immat Gran (auto) 0.04 H Imm/Tot Granulo (auto) 0.6 H Sodium 134 L Potassium 3.5 Chloride 101 Carbon Dioxide 25.5 Anion Gap 11.0 BUN 5.0 L Creatinine 0.51 L Est GFR ( Amer) >60 Est GFR (Non-Af Amer) >60 BUN/Creatinine Ratio 9.8 Glucose 89 Calcium 7.9 L Total Bilirubin 0.4 AST 12 L ALT 18 Alkaline Phosphatase 61 Total Protein 5.8 L Albumin 2.6 L Globulin 3.2 Albumin/Globulin Ratio 0.8 Stl C. cayetanensis PCR Not detected Stool Rotavirus (PCR) Not detected Stool Adenovirus (PCR) Not detected Stool Astrovirus (PCR) Not detected Stool Campylobacter PCR Not detected Stool Cryptosporidium PCR Not detected St Sh/Enteroin Ecoli PCR Not detected Stool E.coli 0157 Cult Not detected Stl Enterotoxigenic E PCR Not detected Stool EPEC (PCR) Not detected Stl E. histolytica PCR Not detected Stool Giardia Lamblia PCR Not detected Stl P. shigelloides PCR Not detected Stool Salmonella PCR Not detected Stool Sapovirus (PCR) Not detected Stl Shiga-like Tx [address].enterocolitica PCR Not detected Stl Vibrio cholerae PCR Not detected Stl Enteroaggr Ecoli PCR Not detected Stl Norovirus GI/GII PCR Not detected C. difficile Toxin A&B Detected A* Vibrio Culture Not detected
--- NOTE | 2022-08-18 12:05 | CM.NOTE ---
Rounds made with Dr. Lee. No plan for discharge today.
[2022-08-18] MEDS: AMLODIPINE BESYLATE 5 MG TABLET PO (12:45)
[2022-08-18] MEDS: METRONIDAZOLE/SODIUM CHLORIDE 500 MG/100 ML PREMIX 100 MG IV (12:46)
[2022-08-18 14:11] VITALS: BP 135/82; PULSE 81; RESP 16; TEMP 37.4; O2SAT 95
--- NOTE | 2022-08-18 14:41 | SWNOTE1 ---
SW met with pt to discuss dc needs. Pt lives at home with his and jordin. Pt voiced that his does care for him, but she does get burnt out as well. SW and pt discussed dc needs and other resources. SW spoke about Assisted Living and it being private pay, unless you spend down. Pt is familiar with this and knows to qualify for medicaid, they make too much. Pt has had home health in the past, but gets to a point where medicare does not pay for it anymore and service stop. SW mentioned at this time it may be beneficial to have HH nursing come back in for a short time. Pt is agreeable, but wants to speak with first. SW to stop back in tomorrow to address. SW reviewed IMM form with pt, he voiced understanding, no questions. Pt signed form, original given to pt and copy placed in chart.
[2022-08-18 15:57] VITALS: BMI 20.1
--- NOTE | 2022-08-18 16:07 | DIETREC ---
Nutrition Recommendations: 1) Add Ensure High Protein BID RD following
--- NOTE | 2022-08-18 18:13 | P.GSCN_ITS ---
History of Present Illness Consult details Consult date: 08/18/22 Narrative: patient seen/examined/chart and ct images reviewed; consult dictated; plan flex sigmoidoscopy/colonoscopy under anesthesia 08/20/22; clear liquids tomorrow, then npo after [facility] Medical History (Updated 08/17/22 @ 13:47 by Shaikh Jesus MD) Family History Family/Other Family history of CHF (congestive heart failure) Other Family history of myocardial infarction Family history of stroke Social History Within the past year, how often did you have a drink containing alcohol: never Score interpretation: A score less than 4 is consistent with normal alcohol consumption. Smoking status: Never smoker Non-prescribed substance use: denies use Previous occupational history: disabled Highest level of school completed/degree received: high school graduate Are you now , , , , never or living with a partner: In a typical week, how many times do you talk on the telephone with family, friends, or neighbors: 3 or more times per week How often do you get together with friends or relatives: 3 or more times per week How often do you attend muslim or caodaism services: 4 or more times per year Do you belong to any clubs or organizations such as muslim groups unions, fraternal or athletic groups, or school groups: yes Total score: 4 Score interpretation: A score of greater than or equal to 2 indicates the lowest level of social isolation. Little interest or pleasure in doing things: not at all Feeling down, depressed, or hopeless: not at all Feel stressed/tense/nervous/anxious/difficulty sleeping: not at all Do you think of yourself as: straight/heterosexual Gender Identity: male Meds Home Medications and Allergies Home Medications Medication Instructions Recorded Confirmed Type acetaminophen 325 mg capsule 650 mg PO Q6H PRN pain 08/17/22 08/17/22 History (Tylenol) aspirin 81 mg tablet,delayed 81 mg PO DAILY 08/17/22 08/17/22 History release (Adult Aspirin Regimen) baclofen 20 mg tablet 20 mg PO BID 08/17/22 08/17/22 History calcium carbonate-vitamin D3 See Rx Instructions PO DAILY 08/17/22 08/17/22 History fluoxetine 20 mg capsule 20 mg PO DAILY 08/17/22 08/17/22 History lisinopril 20 1 tab PO DAILY 08/17/22 08/17/22 History mg-hydrochlorothiazide 25 mg tablet naproxen sodium 220 mg capsule 220 mg PO DAILY 08/17/22 08/17/22 History (Aleve) oxybutynin chloride 5 mg tablet 5 mg PO DAILY 08/17/22 08/17/22 History tizanidine 4 mg tablet 4 mg PO DAILY 08/17/22 08/17/22 History tramadol 50 mg tablet 50 mg PO Q6H PRN pain 08/17/22 08/17/22 History vitamin B complex (B 1 tab PO DAILY 08/17/22 08/17/22 History Complex-Vitamin B12 tablet) Allergies Allergy/AdvReac Type Severity Reaction Status Date / Time No Known Drug Allergies Allergy Verified 08/16/22 19:50 Exam Constitutional Vital Signs - 24 hr 08/17/22 19:48 08/17/22 21:58 08/18/22 04:23 Temperature 98.3 F 97.8 F Pulse Rate 78 86 Respiratory Rate 16 16 16 Blood Pressure [Right Arm] 146/85 H 140/80 H Pulse Oximetry 97 96 Oxygen Delivery Method Room Air Room Air 08/18/22 10:38 08/18/22 14:11 Temperature 99.4 F Pulse Rate 81 Respiratory Rate 16 Blood Pressure [Right Arm] 135/82 H Pulse Oximetry 96 95 Oxygen Delivery Method Room Air Room Air Results Labs Labs: Abnormal lab results 08/17/22 08/18/22 Range/Units 21:58 10:11 RBC 4.16 L (4.70-6.10) 10^6/uL Hgb 12.2 L (14.0-18.0) g/dL Hct 35.1 L (42.0-54.0) % MPV 9.1 L (9.5-13.5) fL Lymph % (Auto) 19.6 L (20.5-60.0) % Eos % (Auto) 7.6 H (0.9-7.0) % Abs Immat Gran (auto) 0.04 H (0.00-0.03) 10^3/uL Imm/Tot Granulo (auto) 0.6 H (0.0-0.5) % Sodium 134 L (136-145) mmol/L BUN 5.0 L (7.0-18.0) mg/dL Creatinine 0.51 L (0.70-1.30) mg/dL Calcium 7.9 L (8.5-10.1) mg/dL AST 12 L (15-37) U/L Total Protein 5.8 L (6.4-8.2) g/dL Albumin 2.6 L (3.4-5.0) g/dL C. difficile Toxin A&B Detected A* (NOT DETECTE) Diabetes panel 08/18/22 Range/Units 10:11 Sodium 134 L (136-145) mmol/L Potassium 3.5 (3.5-5.1) mmol/L Chloride 101 (98-107) mmol/L Carbon Dioxide 25.5 (21.0-32.0) mmol/L BUN 5.0 L (7.0-18.0) mg/dL Creatinine 0.51 L (0.70-1.30) mg/dL Glucose 89 (74-106) mg/dL Calcium 7.9 L (8.5-10.1) mg/dL AST 12 L (15-37) U/L ALT 18 (16-63) U/L Alkaline Phosphatase 61 (46-116) U/L Total Protein 5.8 L (6.4-8.2) g/dL Albumin 2.6 L (3.4-5.0) g/dL Calcium panel 08/18/22 Range/Units 10:11 Calcium 7.9 L (8.5-10.1) mg/dL Albumin 2.6 L (3.4-5.0) g/dL Pituitary panel 08/18/22 Range/Units 10:11 Sodium 134 L (136-145) mmol/L Potassium 3.5 (3.5-5.1) mmol/L Chloride 101 (98-107) mmol/L Carbon Dioxide 25.5 (21.0-32.0) mmol/L BUN 5.0 L (7.0-18.0) mg/dL Creatinine 0.51 L (0.70-1.30) mg/dL Glucose 89 (74-106) mg/dL Calcium 7.9 L (8.5-10.1) mg/dL Adrenal panel 08/18/22 Range/Units 10:11 Sodium 134 L (136-145) mmol/L Potassium 3.5 (3.5-5.1) mmol/L Chloride 101 (98-107) mmol/L Carbon Dioxide 25.5 (21.0-32.0) mmol/L BUN 5.0 L (7.0-18.0) mg/dL Creatinine 0.51 L (0.70-1.30) mg/dL Glucose 89 (74-106) mg/dL Calcium 7.9 L (8.5-10.1) mg/dL Total Bilirubin 0.4 (0.2-1.0) mg/dL AST 12 L (15-37) U/L ALT 18 (16-63) U/L Alkaline Phosphatase 61 (46-116) U/L Total Protein 5.8 L (6.4-8.2) g/dL Albumin 2.6 L (3.4-5.0) g/dL All other labs normal. Assessment and Plan Assessment and Plan (1) C. difficile colitis: Assessment and Plan: Recent Hospital admission for C diff but diarrhea never completely resolved. C diff testing is pending. Abdominal exam is benign. But will order CT abd/pelvis to make sure there is no acute underlying intra abdominal pathology. (2) Hypovolemic shock: Assessment and Plan: Required aggressive IV fluid resuscitation. BP is improved and stable now. C/w IV hydration (3) Multiple sclerosis: Assessment and Plan: Bed bound due to b/l LE weakness, b/l UE spastic contractures. (4) Hypertension: Assessment and Plan: Hold all anti hypertensives due to low BP. Resume once BP is stable Qualifiers: Hypertension type: primary hypertension Qualified Code(s): I10 - Essential (primary) hypertension
--- NOTE | 2022-08-18 18:16 | MISC_ITS ---
CONSULTATION DATE: ??08/18/2022 CHIEF COMPLAINT:? Diarrhea. HISTORY OF PRESENT ILLNESS:? Patient is a 62-year-old male with history of multiple sclerosis as well as hypertension, who presented to the emergency room yesterday with weakness and persistent diarrhea.? He was diagnosed with C. diff colitis in June and was treated with oral vancomycin with no improvement in his bowel movements.? They were slowly improving, but then over the last week his symptoms worsened.? He has had 8-10 loose stools per day, unrelated to eating, with no blood or mucus.? He denies any abdominal pain.? He has had no nausea or vomiting.? No fevers.? The stool studies are still positive for C. diff.? He did have an episode of hypotension prior to his presentation to the emergency room that responded to IV fluids.? He did have a repeat CT scan which revealed persistent inflammation of the rectum and thickening, as well as a possible polypoid mass in within the sigmoid colon.? No evidence of megacolon or significant colitis.? No free fluid, free air.? Patient has had no previous abdominal surgery or endoscopies.? He is on no anti-platelet agents or anticoagulants.? Denies alcohol use or tobacco use.? MEDICATIONS:? Home medications include acetaminophen, baby aspirin, baclofen, calcium carbonate, fluoxetine, lisinopril, oxybutynin, tizanidine, tramadol, Vitamin B complex, naproxen p.r.n. ALLERGIES:? He has no known drug allergies. REVIEW OF SYSTEMS:? Ten system review of systems negative for recent weight loss or weight gain.? Denies increased fatigue or light-headedness.? Has had no earache or tinnitus.? No sinus congestion.? No sore throat or hoarseness.? No chest pain, palpitations or syncope.? No chronic cough, shortness of breath or hemoptysis.? No abdominal pain, nausea or vomiting.? Has had the frequent loose stools.? No melena, hematochezia or bright red blood per rectum.? No dysuria, frequency, urgency or hematuria.? No headaches, seizures or tremors.? No easy bruising or bleeding.? No heat or cold intolerance.? No polydipsia, polyphagia or polyuria.? PHYSICAL EXAM:? VITAL SIGNS: ?He is afebrile.? Blood pressure is 135/82.? Pulse is 81 and regular.? Respiratory rate is 16.? O2 saturation is 95% on room air.? GENERAL:? In general, he is a well developed, well nourished male, in no acute distress. HEENT:? Normocephalic, atraumatic.? Sclerae anicteric.? Conjunctiva not injected.? Oral mucosa is moist without lesions.? NECK:? Supple.? There is no adenopathy, thyromegaly or JVD. LUNGS:? Clear bilaterally.? CARDIAC EXAM:? Regular rhythm and rate without appreciable murmurs, rubs or gallops. ABDOMEN:? Soft.? There are hyperactive bowel sounds.? It is non-distended.? There are no masses, hepatosplenomegaly or hernias.? No CVA tenderness.? SKIN:? Warm and dry without lesions, rashes or ulcerations. NEURO EXAM:? Reveals weakness, non-focal.? DIAGNOSTIC TESTS:? CT scan images were personally reviewed. ASSESSMENT:? A 62-year-old male with persistent loose stools after C. diff infection.? No evidence of acute abdomen or toxic megacolon or severe colitis.? He does have persistent thickening of the rectum as well as inflammation in that area, as well as a possible intraluminal polypoid mass in the sigmoid.? He is currently back on antibiotic therapy. PLAN:? Overall, due to his lack of improvement, I would recommend flexible sigmoidoscopy to further evaluate the rectum and sigmoid, to see if this could be some other type of colitis or mass, possibly contributing to his problems.? Generally, would likely not proceed with full colonoscopy unless his mucosa appears normal.? Due to his frequent loose stools, he will likely not require a prep, but will just require a clear liquid diet.? He is on regular food today, so we will switch him to a clear liquid diet tomorrow and proceed with a flexible sigmoidoscopy under anesthesia on Thursday.? This was all explained in detail to the patient.? All of his questions were answered.? Informed consent was obtained. CC:? Shaikh Jesus M.D. FREDDIE
[2022-08-18 19:24] VITALS: RESP 16
[2022-08-18 20:09] VITALS: O2SAT 94
[2022-08-19] MEDS: METRONIDAZOLE/SODIUM CHLORIDE 500 MG/100 ML PREMIX 100 MG IV ×3 (00:30→14:49)
[2022-08-19] MEDS: LACTATED RINGER'S SOLUTION 1,000 ML 125 ML IV ×2 (00:32→09:38)
[2022-08-19] MEDS: VANCOMYCIN HCL 7,500 MG/150 ML BOTTLE 250 MG PO ×4 (03:10→21:51)
[2022-08-19 04:26] VITALS: O2SAT 95
[2022-08-19 06:37] VITALS: BP 153/90; PULSE 91; RESP 18; TEMP 36.5; O2SAT 94
[2022-08-19] MEDS: L. ACIDOPHILUS/L.BULGARICUS 1 PACKET GRAN.PACK PO ×2 (09:25→21:49)
[2022-08-19] MEDS: FLUOXETINE HCL 20 MG CAPSULE PO (09:25)
[2022-08-19] MEDS: OXYBUTYNIN CHLORIDE 5 MG TAB XL PO (09:26)
[2022-08-19] MEDS: TIZANIDINE HCL 4 MG TABLET PO (09:26)
[2022-08-19] MEDS: BACLOFEN 10 MG TABLET 20 MG PO ×2 (09:26→21:51)
[2022-08-19] MEDS: ASPIRIN 81 MG TABLET.DR PO (09:26)
[2022-08-19] MEDS: ENOXAPARIN SODIUM 40 MG/0.4 ML SYRINGE SUBQ (09:26)
--- NOTE | 2022-08-19 12:29 | CM.NOTE ---
Rounds made with Dr. Lee, discussed with pt about colonoscopy tomorrow after bowel prep today. No discharge today.
[2022-08-19 14:00] VITALS: BP 154/97; PULSE 84; RESP 16; TEMP 36.5; O2SAT 96
--- NOTE | 2022-08-19 14:35 | SWNOTE1 ---
SW met with pt and to discuss dc plans. Home health was discussed with pt and , they are agreeable and would like [facility]. Nursing facility for therapy was also discussed. SW did explain that pt is likely at his baseline and insurance would likely not approve. They did voice understanding. SW did mention respit stay to pt and , but she stated they cannot afford that. 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 At this time GINNY setting up [facility]. Referral sent to [facility].
--- NOTE | 2022-08-19 14:35 | PM.IMPN1 ---
Progress Note: A&P Assessment and Plan (1) C. difficile colitis: Assessment and Plan: Improved with addition of Flagyl. C/w PO vancomycin CT abd shows proctatis. NPO after MN for Colonoscopy tomorrow (2) Hypovolemic shock: Assessment and Plan: resolved. BP above goal now. Started on antihypertensives. (3) Multiple sclerosis: Assessment and Plan: On baclofen for spasticity. Bed bound. B/L LE weakness, LUE spastic contracture. (4) Hypertension: Assessment and Plan: Initially hypotensive. BP at goal now. Started on Amlodipine 5 mg daily. Not using Lisinopril/HCTZ due to diarrhea. Qualifiers: Hypertension type: primary hypertension Qualified Code(s): I10 - Essential (primary) hypertension Internal Medicine - PN: Subj Subjective Interval history: Seen and examined. No overnight events. Diarrhea improved with addition of Flagyl. Exam Constitutional Vital Signs - 24 hr 08/18/22 19:24 08/18/22 20:09 08/19/22 04:26 Temperature Pulse Rate Respiratory Rate 16 Blood Pressure [Right Arm] Pulse Oximetry 94 L 95 Oxygen Delivery Method Room Air Room Air 08/19/22 06:37 08/19/22 14:00 Temperature 97.7 F 97.7 F Pulse Rate 91 H 84 Respiratory Rate 18 16 Blood Pressure [Right Arm] 153/90 H 154/97 H Pulse Oximetry 94 L 96 Oxygen Delivery Method Room Air Room Air Documenting provider has reviewed patient's vital signs: yes General appearance: cooperative, ill appearing, frail appearing and diaphoretic Nutritional appearance: underweight Orientation/consciousness: Yes awake HENUT Common normals: normocephalic Eye Common normals: conjunctivae normal and no scleral icterus Respiratory Common normals: normal respiratory effort, no use of accessory muscles and clear to auscultation bilaterally Cardio Common normals: regular rate, regular rhythm, S1 normal heart sound, S2 normal heart sound and no murmurs GI Common normals: Normal to inspection, nondistended, normoactive bowel sounds present, soft to palpation, non-tender and no hepatosplenomegaly Extremity Other: Left UE spastic contracture from MS Right UE spasticity and developing contracture but still retains some mobility and function. Neuro Common normals: oriented x3 Meningeal signs: no meningeal signs Speech: speech normal Gait (neuro): other (bed bound, wheelchair bound) Motor exam: other (spastic contracture b/l UE, B/L LE 03/13) Psych Common normals: mental status grossly normal, thought process normal, cooperative, denies homicidal ideation and denies suicidal ideation
[2022-08-19] MEDS: AMLODIPINE BESYLATE 5 MG TABLET PO (14:50)
[2022-08-19 20:00] VITALS: RESP 16
[2022-08-19 20:22] VITALS: O2SAT 96
[2022-08-19 21:56] VITALS: BP 144/88; PULSE 92; RESP 18; TEMP 37.1; O2SAT 95
[2022-08-20] VITALS (7 sets, daily range): BP systolic 114–133; BP diastolic 69–85; PULSE 90–101; RESP 14–18; TEMP 36.1–36.9; O2SAT 95–98
[2022-08-20] MEDS: METRONIDAZOLE/SODIUM CHLORIDE 500 MG/100 ML PREMIX 100 MG IV ×3 (00:51→14:04)
[2022-08-20] MEDS: VANCOMYCIN HCL 7,500 MG/150 ML BOTTLE 250 MG PO ×2 (02:03→14:13)
[2022-08-20 05:32] LABS: Basophils Absolute Auto 0.1 10^3/uL (0.0-0.1); Basophils Percent Auto 1.2 % (0.2-2.0); Eosinophils Absolute Auto 0.7 10^3/uL (0.0-0.7); Eosinophils Percent Auto 7.3 % (0.9-7.0); Hematocrit 39.4 % (42.0-54.0); Hemoglobin 13.2 g/dL (14.0-18.0); Immature Granulocytes Abs Auto 0.07 10^3/uL (0.00-0.03); Immature Granulocytes Pct Auto 0.7 % (0.0-0.5); Lymphocytes Absolute Auto 1.3 10^3/uL (1.2-3.8); Lymphocytes Percent Auto 13.5 % (20.5-60.0); Mean Corpuscular HGB Conc 33.5 g/dL (29.9-35.2); Mean Corpuscular Hemoglobin 28.8 pg (25.9-34.0); Mean Corpuscular Volume 85.8 fL (80.0-94.0); Mean Platelet Volume 9.8 fL (9.5-13.5); Monocytes Absolute Auto 0.8 10^3/uL (0.3-0.8); Monocytes Percent Auto 8.2 % (1.7-12.0); Neutrophils Absolute Auto 6.5 10^3/uL (1.4-6.5); Neutrophils Percent Auto 69.1 % (43.0-75.0); Platelet Count 333 10^3/uL (150-450); Red Blood Count 4.59 10^6/uL (4.70-6.10); Red Cell Distribution Width 12.6 % (11.0-15.0); White Blood Count 9.5 10^3/uL (4.0-11.0)
[2022-08-20 06:15] LABS: Alanine Aminotransferase 21 U/L (16-63); Albumin Level 3.1 g/dL (3.4-5.0); Alkaline Phosphatase 65 U/L (46-116); Anion Gap 20.8; Aspartate Amino Transferase 14 U/L (15-37); BUN Creatinine Ratio 5.8; Bilirubin Total 0.5 mg/dL (0.2-1.0); Calcium 8.5 mg/dL (8.5-10.1); Carbon Dioxide 20.9 mmol/L (21.0-32.0); Chloride 98 mmol/L (98-107); Estimated GFR (African America >60 (>=60); Estimated GFR (Non-African Ame >60 (>=60); Glucose 72 mg/dL (74-106); Potassium 3.7 mmol/L (3.5-5.1); Sodium 136 mmol/L (136-145); Total Protein 6.1 g/dL (6.4-8.2)
--- NOTE | 2022-08-20 09:23 | SWNOTE1 ---
SW received message from [facility] and pt is current with them. He receives PT/OT nursing and an aide coming in.
[2022-08-20] MEDS: 0.9 % SODIUM CHLORIDE 1,000 ML 100 ML (10:26)
--- NOTE | 2022-08-20 12:22 | CM.NOTE ---
Rounds made with emmanuelle Oliveira for discharge to home today. Pt has [facility].
--- NOTE | 2022-08-20 13:08 | OP_ITS ---
OPERATION DATE: ??08/20/2022 PREOPERATIVE DIAGNOSIS:? Proctitis, colitis and abnormal sigmoid on abdominal/pelvic CT scan. POSTOPERATIVE DIAGNOSIS:? Mild rectal inflammation. PROCEDURE:? Colonoscopy to descending colon with multiple rectal biopsies. SURGEON:? Feng Kevin M.D. ANESTHESIA:? Monitored anesthesia care. ESTIMATED BLOOD LOSS:? Less than 1 mL. INDICATIONS AND CONSENT:? Patient is a 62-year-old male with multiple sclerosis, who recently had problems with worsening loose stools, had C. diff in June and had not fully recovered.? He has had multiple CT scans which revealed inflammation of the rectum, as well as a possible mucosal mass within the sigmoid.? Indications, risks, benefits, alternatives of proceeding with flexible sigmoidoscopy under anesthesia were explained extensively to the patient, including the risks of bleeding, colon perforation or anesthetic complications.? All of his questions were answered.? Informed consent was obtained. PROCEDURE:? Patient brought to the operating room, placed in the left lateral decubitus position.? Monitored anesthesia care was provided.? Rectal exam was performed which showed no masses or blood.? The scope was inserted into the anal canal.? Under direct visualization was advanced to the descending colon. ?There was some mucus and areas of formed stool.? There were no ulcerations or bleeding.? No mass lesions or polyps noted.? There was some mild sigmoid diverticulosis without inflammatory changes or scarring.? Within the rectum, there was mild mucosal inflammation without ulceration or bleeding.? Several biopsies were obtained with cold biopsy forceps with good hemostasis.? There was no significant hemorrhoidal disease.? Scope was then withdrawn.? Patient tolerated procedure well, was sent to back to recovery area in good condition. CC:? Dr. Jesus FRAZIER
[2022-08-20] MEDS: ENOXAPARIN SODIUM 40 MG/0.4 ML SYRINGE SUBQ (14:03)
[2022-08-20] MEDS: ASPIRIN 81 MG TABLET.DR PO (14:03)
[2022-08-20] MEDS: FLUOXETINE HCL 20 MG CAPSULE PO (14:03)
[2022-08-20] MEDS: BACLOFEN 10 MG TABLET 20 MG PO (14:03)
[2022-08-20] MEDS: AMLODIPINE BESYLATE 5 MG TABLET PO (14:03)
[2022-08-20] MEDS: L. ACIDOPHILUS/L.BULGARICUS 1 PACKET GRAN.PACK PO (14:04)
[2022-08-20] MEDS: TIZANIDINE HCL 4 MG TABLET PO (14:04)
[2022-08-20] MEDS: OXYBUTYNIN CHLORIDE 5 MG TAB XL PO (14:04)
--- NOTE | 2022-08-20 15:07 | SWNOTE1 ---
Discharge orders sent to [facility].
--- NOTE | 2022-08-20 15:09 | SWNOTE1 ---
SW called and set up [facility] for 4:00. SW notified nursing and pt/ in room.
--- NOTE | 2022-08-20 16:04 | P.DS_ITS ---
DS: Providers Provider Date of admission: 08/17/22 00:30 Primary care physician: DANIA HO MD Consults: 08/18/22 11:34 Consult to General Surgeon Routine Consulting Provider: Feng Kevin Attending physician on discharge: Shaikh Jesus Discharging clinician: Shaikh Jesus Anticipated date of discharge: 08/20/22 DS: Diagnosis Discharge Diagnosis (1) C. difficile colitis: Assessment and plan: Improving. No diarrhea. Finish PO vancoymcin (2) Hypovolemic shock: Assessment and plan: Due to dehydration. BP stable now (3) Multiple sclerosis: Assessment and plan: Unchanged (4) Hypertension: Assessment and plan: Resume home meds Qualifiers: Hypertension type: primary hypertension Qualified Code(s): I10 - Essential (primary) hypertension DS: Summary Hospital Course Hospital Course: Patient admitted for hypovolemic shock from persistent diarrhea and was admitted for C diff colitis. He received IV fluids, PO vancomycin and IV flagyl. Slowly improved and now does not have diarrhea. CT abd showed proctatis. Colonoscopy showed mild rectal inflammation. Rectal biopsy and sample sent. Stable for dc on oral Vancoymcin Educated on sigsn and symptoms that should promtp visit ti ED Status at Discharge Overall status at discharge: patient is back to baseline Time Spent with Patient Time attestation: Total time spent providing and/or coordinating discharge services: Time spent: greater than 30 minutes Exam Constitutional Vital Signs - 24 hr 08/19/22 20:00 08/19/22 20:22 08/19/22 21:56 Temperature 98.7 F Pulse Rate 92 H Respiratory Rate 16 18 Blood Pressure Blood Pressure [Right Arm] 144/88 H Pulse Oximetry 96 95 Oxygen Delivery Method Room Air Room Air 08/20/22 04:29 08/20/22 05:00 08/20/22 13:08 Temperature 98.4 F 98.5 F Pulse Rate 99 H 95 H Respiratory Rate 18 14 Blood Pressure 114/72 Blood Pressure [Right Arm] 124/69 H Pulse Oximetry 96 97 96 Oxygen Delivery Method Room Air Room Air Room Air 08/20/22 13:23 08/20/22 13:29 08/20/22 13:54 Temperature 97.5 F L 98.3 F 97.0 F L Pulse Rate 90 94 H 101 H Respiratory Rate 16 16 18 Blood Pressure 122/77 H 133/84 H Blood Pressure [Right Arm] 130/85 H Pulse Oximetry 95 98 Oxygen Delivery Method Room Air Room Air Room Air 08/20/22 15:46 08/20/22 15:51 Temperature Pulse Rate Respiratory Rate Blood Pressure Blood Pressure [Right Arm] Pulse Oximetry 98 Oxygen Delivery Method Room Air Room Air Documenting provider has reviewed patient's vital signs: yes General appearance: cooperative Nutritional appearance: underweight Orientation/consciousness: Yes awake HENMT Common normals: normocephalic Eye Common normals: conjunctivae normal and no scleral icterus Respiratory Common normals: normal respiratory effort, no use of accessory muscles and clear to auscultation bilaterally Cardio Common normals: regular rate, regular rhythm, S1 normal heart sound, S2 normal heart sound and no murmurs GI Common normals: Normal to inspection, nondistended, normoactive bowel sounds present, soft to palpation, non-tender and no hepatosplenomegaly Extremity Other: Left UE spastic contracture from MS Right UE spasticity and developing contracture but still retains some mobility and function. Neuro Common normals: oriented x3 Meningeal signs: no meningeal signs Speech: speech normal Gait (neuro): other (bed bound, wheelchair bound) Motor exam: other (spastic contracture b/l UE, B/L LE 1/5) Psych Common normals: mental status grossly normal, thought process normal, cooperative, denies homicidal ideation and denies suicidal ideation DS: Data Data Completed and Pending Labs on day of discharge: Labs from last 24 hours 08/20/22 04:50 WBC 9.5 RBC 4.59 L Hgb 13.2 L Hct 39.4 L MCV 85.8 MCH 28.8 MCHC 33.5 RDW 12.6 Plt Count 333 MPV 9.8 Neut % (Auto) 69.1 Lymph % (Auto) 13.5 L Buchanan % (Auto) 8.2 Eos % (Auto) 7.3 H Baso % (Auto) 1.2 Neut # (Auto) 6.5 Lymph # (Auto) 1.3 Buchanan # (Auto) 0.8 Eos # (Auto) 0.7 Baso # (Auto) 0.1 Abs Immat Gran (auto) 0.07 H Imm/Tot Granulo (auto) 0.7 H Sodium 136 Potassium 3.7 Chloride 98 Carbon Dioxide 20.9 L Anion Gap 20.8 BUN 3.0 L Creatinine 0.52 L Est GFR ( Amer) >60 Est GFR (Non-Af Amer) >60 BUN/Creatinine Ratio 5.8 Glucose 72 L Calcium 8.5 Total Bilirubin 0.5 AST 14 L ALT 21 Alkaline Phosphatase 65 Total Protein 6.1 L Albumin 3.1 L Globulin 3.0 Albumin/Globulin Ratio 1.0 Discharge Plan Discharge Disposition: Home, Self-Care Condition: Fair Discharge Medications: New vancomycin 250 mg capsule 250 mg PO Q6H 7 Days Qty: 28 0RF Continued baclofen 20 mg tablet 20 mg PO BID fluoxetine 20 mg capsule 20 mg PO DAILY lisinopril-hydrochlorothiazide 20-25 mg tablet 1 tab PO DAILY oxybutynin chloride 5 mg tablet 5 mg PO DAILY tizanidine 4 mg tablet 4 mg PO DAILY tramadol 50 mg tablet 50 mg PO Q6H PRN (Reason: pain) calcium carbonate-vitamin D3 [Calcium 600 with Vitamin D3] See Rx Instructions PO DAILY Rx Instructions: 1 tab orally daily; 1 tablet; vitamin B complex [B Complex-Vitamin B12] Tablet 1 tab PO DAILY naproxen sodium [Aleve] 220 mg capsule 220 mg PO DAILY aspirin [Adult Aspirin Regimen] 81 mg tablet,delayed release (DR/EC) 81 mg PO DAILY acetaminophen [Tylenol] 325 mg capsule 650 mg PO Q6H PRN (Reason: pain) Activity: resume usual activities as tolerated Diet: advance to your usual diet Patient Instructions: C. 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, phone number [phone] Forms: Portal Instructions Follow Up Appointments: Follow up with Dr. Ho on August 27 @ 1:15 pm Discharge Date/Time: 08/20/22 16:05
--- NOTE | 2022-08-21 15:02 | CM.DCFOLLOWU ---
Person spoke with: Donnie How are you feeling? better How is your pain? controlled Did you understand your discharge instructions? yes Do you have any questions about your discharge instructions? no Were you given any prescriptions at discharge? yes Were you able to get your prescriptions filled? yes Do you understand how to take your medications as ordered? yes Do you have any questions about your follow up appointment and do you plan to keep your follow up appointment? Have not scheduled. Encouraged pt to schedule Is there anything else that you would like to discuss? No Questions/Comments/Concerns/Other:
== END 2022-08-20 16:05 | disposition home or self-care (01) | DRG 371 ==
LOC: ER 20:30 → MS 08-17 00:33
PROVIDERS: Surgery; Admitting Provider Internal Medicine; Emergency Provider Emergency Medicine; PCP Nurse Practitioner Primary Care; Visit Provider Internal Medicine
PROC: 0DBP8ZX Excision of Rectum, Via Natural or Artificial Opening Endoscopic, Diagnostic (ICD-10-PCS; principal; 2022-08-20 10:30)
DX: A04.72 Enterocolitis due to Clostridium difficile, not specified as recurrent (principal); R57.1 Hypovolemic shock; G35 Multiple sclerosis; M62.422 Contracture of muscle, left upper arm; M62.838 Other muscle spasm; I10 Essential (primary) hypertension; K62.89 Other specified diseases of anus and rectum; K57.30 Diverticulosis of large intestine without perforation or abscess without bleeding; L89.101 Pressure ulcer of unspecified part of back, stage 1; Z74.01 Bed confinement status; Z86.19 Personal history of other infectious and parasitic diseases; Z79.82 Long term (current) use of aspirin; Z79.899 Other long term (current) drug therapy; Z82.49 Family history of ischemic heart disease and other diseases of the circulatory system; Z82.3 Family history of stroke
CPT/HCPCS: 36415; 74177; 80053; 81003; 83605; 83690; 85025; 87493; 87507; 88305; 94761; 96365; 96366; 96367; 96372; 99285; J2704; J3480; Q9966; Q9967

== ENCOUNTER 2022-10-01 12:36 | Emergency (ER) | payer MEDICARE, SELFPAY ==
[2022-10-01] VITALS (28 sets, daily range): BP systolic 82–168; BP diastolic 59–110; PULSE 65–85; RESP 0–23; TEMP 36.6; O2SAT 84–100; BMI 23.6
--- NOTE | 2022-10-01 12:42 | ED.GENADUL1 ---
HPI - General Adult General Chief complaint: Syncope Stated complaint: GENERAL WEAKNESS Time Seen by Provider: 10/01/22 12:42 Source: patient Mode of arrival: ambulance History of Present Illness HPI narrative: The patient presenting to us from home after he had a syncopal episode, he was drinking coffee according to him and all of a sudden he passed out he was not the one that called the ambulance his did, when the EMS presented to the bedside he was very hypotensive with a blood pressure of 60 systolic in addition to being pale The patient denying any complaints right now at all he did receive some IV fluid before arrival by the EMS The patient have a history of MS as well as C. difficile he mentioned that he has been having regular bowel movements with no diarrhea he also had normal p.o. intake When the presented at the bedside she did mention that he did not actually pass out but he was not talking to her for few seconds while nodding Related Data Home Medications Medication Instructions Recorded Confirmed acetaminophen 325 mg capsule 650 mg PO Q6H PRN pain 08/17/22 08/17/22 (Tylenol) aspirin 81 mg tablet,delayed 81 mg PO DAILY 08/17/22 08/17/22 release (Adult Aspirin Regimen) baclofen 20 mg tablet 20 mg PO BID 08/17/22 08/17/22 calcium carbonate-vitamin D3 See Rx Instructions PO DAILY 08/17/22 08/17/22 fluoxetine 20 mg capsule 20 mg PO DAILY 08/17/22 08/17/22 naproxen sodium 220 mg capsule 220 mg PO DAILY 08/17/22 08/17/22 (Aleve) oxybutynin chloride 5 mg tablet 5 mg PO DAILY 08/17/22 08/17/22 tizanidine 4 mg tablet 4 mg PO DAILY 08/17/22 08/17/22 tramadol 50 mg tablet 50 mg PO Q6H PRN pain 08/17/22 08/17/22 vitamin B complex (B 1 tab PO DAILY 08/17/22 08/17/22 Complex-Vitamin B12 tablet) Previous Rx's Medication Instructions Recorded vancomycin 250 mg capsule 250 mg PO Q6H 7 days #28 caps 08/20/22 Allergies Allergy/AdvReac Type Severity Reaction Status Date / Time No Known Drug Allergies Allergy Verified 10/01/22 12:41 Review of Systems ROS Status of ROS 10 or more systems reviewed and unremarkable except as noted in history and below PFSH PFSH Medical History (Updated 10/01/22 @ 14:58 by Lindsey Tovar MD) Family History Family/Other Family history of CHF (congestive heart failure) Other Family history of myocardial infarction Family history of stroke Social History Within the past year, how often did you have a drink containing alcohol: never Score interpretation: A score less than 4 is consistent with normal alcohol consumption. Smoking status: Never smoker Non-prescribed substance use: denies use Previous occupational history: disabled Highest level of school completed/degree received: high school graduate Are you now , , , , never or living with a partner: In a typical week, how many times do you talk on the telephone with family, friends, or neighbors: 3 or more times per week How often do you get together with friends or relatives: 3 or more times per week How often do you attend zoroastrianism or oriental orthodox services: 4 or more times per year Do you belong to any clubs or organizations such as zoroastrianism groups unions, [employer] or athletic groups, or school groups: yes Total score: 4 Score interpretation: A score of greater than or equal to 2 indicates the lowest level of social isolation. Little interest or pleasure in doing things: not at all Feeling down, depressed, or hopeless: not at all Feel stressed/tense/nervous/anxious/difficulty sleeping: not at all Do you think of yourself as: straight/heterosexual Gender Identity: male Exam Narrative Exam Narrative: Nurses notes and vital signs reviewed and patient is not hypoxic. General: Well-appearing and in no apparent distress. Skin: Warm, dry, no pallor noted. No rash. Head: Normocephalic, atraumatic. Neck: Supple, non-tender. Eye: Pupils are equal, round and EOMI. No scleral icterus. Ears, Nose, Mouth, and Throat: TM are clear, no nasal mucosal hypertrophy. Oral mucosa is moist, no posterior oropharynx erythema, uvula is mid-line Cardiovascular: Regular Rate and Rhythm without murmur, gallop or rub. Respiratory: No accessory muscle use or respiratory distress. Lungs are clear to auscultation, no wheezing, rales or rhonchi Chest Wall: no tenderness Back: No midline thoracic or lumbar vertebral tenderness. No CVA tenderness Musculoskeletal: no calf or popliteal tenderness, no lower extremity edema/swelling GI: Abdomen is soft, non-distended. Normal bowel sounds. No masses appreciated. No tenderness to palpation. No rebound, guarding, or rigidity noted. Neurological: A&O x4. No cranial nerve dysfunction observed. The patient have weakness of the upper extremity with deformity and muscle contraction and also have weakness of the lower extremity with deformities as well Psychiatric: Cooperative and interactive. Normal mood and affect. Constitutional Vital Signs, click to edit/add: Last Vital Signs Temp 97.8 F 10/01/22 12:38 Pulse 66 10/01/22 13:20 Resp 9 L 10/01/22 13:20 BP 98/71 10/01/22 13:01 Pulse Ox 98 10/01/22 12:39 O2 Del Method Room Air 10/01/22 12:38 Course Vital Signs Vital signs: Vital Signs Blood Pressure 82/59 L 10/01/22 12:36 Temperature 97.8 F 10/01/22 12:38 Pulse Rate 66 10/01/22 13:20 Respiratory Rate 9 L 10/01/22 13:20 Blood Pressure 98/71 10/01/22 13:01 Pulse Oximetry 98 10/01/22 12:39 Oxygen Delivery Method Room Air 10/01/22 12:38 Medical Decision Making [facility] Narrative Medical decision making narrative: EKG showing sinus rhythm with a heart rate of [address] elevation or depression The patient CBC and chemistry showed no acute significant pathology except for mild hypomagnesemia The patient magnesium was replaced and from the history that obtained from the the patient only was hypotensive and did not pass out The patient blood pressure responded to IV fluid 1 L and the patient admits that he does not drink enough water Right now the patient blood pressure medication were given to him in the morning Right now the patient feeling much better and his blood pressure being low could be secondary to dehydration Complete blood work-up did not show any acute pathology and his lactic acid was not elevated and the patient's symptoms can be explained by his hypotension that responded to IV fluid by the time of his arrival to the ER Right now the patient's blood pressure medication will be hold and his will measure his blood pressure daily until blood pressure is above 140 systolic The patient will be discharged with instruction to come back to us for new symptoms Lab Data Labs: Lab Results 10/01/22 10/01/22 Range/Units 12:53 13:34 WBC 6.7 (4.0-11.0) 10^3/uL RBC 4.13 L (4.70-6.10) 10^6/uL Hgb 12.0 L (14.0-18.0) g/dL Hct 36.3 L (42.0-54.0) % MCV 87.9 (80.0-94.0) fL MCH 29.1 (25.9-34.0) pg MCHC 33.1 (29.9-35.2) g/dL RDW 13.3 (11.0-15.0) % Plt Count 228 (150-450) 10^3/uL MPV 9.5 (9.5-13.5) fL Neut % (Auto) 58.7 (43.0-75.0) % Lymph % (Auto) 19.3 L (20.5-60.0) % [place] % (Auto) 9.6 (1.7-12.0) % Eos % (Auto) 10.8 H (0.9-7.0) % Baso % (Auto) 1.3 (0.2-2.0) % Neut # (Auto) 4.0 (1.4-6.5) 10^3/uL Lymph # (Auto) 1.3 (1.2-3.8) 10^3/uL [place] # (Auto) 0.7 (0.3-0.8) 10^3/uL Eos # (Auto) 0.7 (0.0-0.7) 10^3/uL Baso # (Auto) 0.1 (0.0-0.1) 10^3/uL Abs Immat Gran (auto) 0.02 (0.00-0.03) 10^3/uL Imm/Tot Granulo (auto) 0.3 (0.0-0.5) % Sodium 140 (136-145) mmol/L Potassium 4.0 (3.5-5.1) mmol/L Chloride 103 (98-107) mmol/L Carbon Dioxide 29.9 (21.0-32.0) mmol/L Anion Gap 11.1 BUN 15.0 (7.0-18.0) mg/dL Creatinine 0.90 (0.70-1.30) mg/dL Est GFR ( Amer) >60 (>=60) Est GFR (Non-Af Amer) >60 (>=60) BUN/Creatinine Ratio 16.7 Glucose 92 (74-106) mg/dL Lactate 1.3 (0.4-2.0) mmol/L Calcium 7.6 L (8.5-10.1) mg/dL Magnesium 1.4 L (1.8-2.4) mg/dL Total Bilirubin 0.2 (0.2-1.0) mg/dL AST 12 L (15-37) U/L ALT 8 L (16-63) U/L Alkaline Phosphatase 81 (46-116) U/L Troponin I High Sens 8.3 (4.0-76.1) pg/mL Total Protein 5.7 L (6.4-8.2) g/dL Albumin 3.0 L (3.4-5.0) g/dL Globulin 2.7 g/dL Albumin/Globulin Ratio 1.1 Urine Color Lt. yellow (YELLOW) Urine Clarity Clear (CLEAR) Urine pH 7.5 (5.0-9.0) Ur Specific [place] 1.010 (1.005-1.025) Urine Protein Negative (NEG/TRACE) mg/dL Urine Glucose (UA) Negative (NEGATIVE) mg/dL Urine Ketones Negative (NEGATIVE) mg/dL Urine Occult Blood Negative (NEGATIVE) Urine Nitrite Negative (NEGATIVE) Urine Bilirubin Negative (NEGATIVE) Urine Urobilinogen 0.2 (0.2-1.0) EU/dL Ur Leukocyte Esterase Negative (NEGATIVE) Discharge Plan Discharge Chief Complaint: Syncope Clinical Impression: Acute hypotension Patient Disposition: Home, Self-Care Time of Disposition Decision: 14:57 Prescriptions / Home Meds: Discontinued lisinopril-hydrochlorothiazide 20-25 mg tablet 1 tab PO DAILY No Action baclofen 20 mg tablet 20 mg PO BID fluoxetine 20 mg capsule 20 mg PO DAILY oxybutynin chloride 5 mg tablet 5 mg PO DAILY tizanidine 4 mg tablet 4 mg PO DAILY tramadol 50 mg tablet 50 mg PO Q6H PRN (Reason: pain) calcium carbonate-vitamin D3 [Calcium 600 with Vitamin D3] See Rx Instructions PO DAILY Rx Instructions: 1 tab orally daily; 1 tablet; vitamin B complex [B Complex-Vitamin B12] Tablet 1 tab PO DAILY naproxen sodium [Aleve] 220 mg capsule 220 mg PO DAILY aspirin [Adult Aspirin Regimen] 81 mg tablet,delayed release (DR/EC) 81 mg PO DAILY acetaminophen [Tylenol] 325 mg capsule 650 mg PO Q6H PRN (Reason: pain) vancomycin 250 mg capsule 250 mg PO Q6H 7 Days Qty: 28 0RF Instructions: Hypotension (ED) Stand Alone Forms: Portal Instructions Referrals: DANIA HO APRN [Primary Care Provider] - 1 week
--- NOTE | 2022-10-01 12:44 | ECG_ITS ---
The 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
--- NOTE | 2022-10-01 12:49 | XR_ITS ---
The [address] [address] Patient Name: SARINA RODRIGUEZ MRN: [id number] date: 1960 Sex: M Assigned Patient Location: ER Current Patient Location: ER Accession/Order Number: [id number] Exam Date: 10/01/2022 13:03 Report Date: 10/01/2022 13:20 At the request of: JIGAR ACHARYA Procedure: XR chest 1V EXAM: XR chest 1V HISTORY: hypotension COMPARISON: None. TECHNIQUE: Single AP view of the chest. FINDINGS: The lungs are clear. No pleural effusion or pneumothorax. The cardiomediastinal silhouette is unremarkable. Multiple chronic left-sided rib fractures are noted. XR/XR chest 1V IMPRESSION: 1. No acute cardiopulmonary process. Electronically authenticated by: DINAH JONES Date: 10/01/2022 13:20
[2022-10-01] MEDS: 0.9 % SODIUM CHLORIDE 1,000 ML 1000 ML IV (12:58)
[2022-10-01 13:01] LABS: Basophils Absolute Auto 0.1 10^3/uL (0.0-0.1); Basophils Percent Auto 1.3 % (0.2-2.0); Eosinophils Absolute Auto 0.7 10^3/uL (0.0-0.7); Eosinophils Percent Auto 10.8 % (0.9-7.0); Hematocrit 36.3 % (42.0-54.0); Immature Granulocytes Abs Auto 0.02 10^3/uL (0.00-0.03); Immature Granulocytes Pct Auto 0.3 % (0.0-0.5); Lymphocytes Absolute Auto 1.3 10^3/uL (1.2-3.8); Lymphocytes Percent Auto 19.3 % (20.5-60.0); Mean Corpuscular HGB Conc 33.1 g/dL (29.9-35.2); Mean Corpuscular Hemoglobin 29.1 pg (25.9-34.0); Mean Corpuscular Volume 87.9 fL (80.0-94.0); Mean Platelet Volume 9.5 fL (9.5-13.5); Monocytes Absolute Auto 0.7 10^3/uL (0.3-0.8); Monocytes Percent Auto 9.6 % (1.7-12.0); Neutrophils Percent Auto 58.7 % (43.0-75.0); Platelet Count 228 10^3/uL (150-450); Red Blood Count 4.13 10^6/uL (4.70-6.10); Red Cell Distribution Width 13.3 % (11.0-15.0); White Blood Count 6.7 10^3/uL (4.0-11.0)
[2022-10-01 13:14] LABS: Magnesium 1.4 mg/dL (1.8-2.4)
[2022-10-01 13:24] LABS: Lactate/Lactic Acid 1.3 mmol/L (0.4-2.0)
[2022-10-01 13:33] LABS: Alanine Aminotransferase 8 U/L (16-63); Albumin Globulin Ratio 1.1; Alkaline Phosphatase 81 U/L (46-116); Anion Gap 11.1; Aspartate Amino Transferase 12 U/L (15-37); BUN Creatinine Ratio 16.7; Bilirubin Total 0.2 mg/dL (0.2-1.0); Calcium 7.6 mg/dL (8.5-10.1); Carbon Dioxide 29.9 mmol/L (21.0-32.0); Chloride 103 mmol/L (98-107); Estimated GFR (African America >60 (>=60); Estimated GFR (Non-African Ame >60 (>=60); Globulin 2.7 g/dL; Glucose 92 mg/dL (74-106); Sodium 140 mmol/L (136-145); Total Protein 5.7 g/dL (6.4-8.2); Troponin I High Sensitivity 8.3 pg/mL (4.0-76.1)
[2022-10-01 13:57] LABS: Bilirubin Urine NEGATIVE (NEGATIVE); Blood Urine NEGATIVE (NEGATIVE); Clarity Urine CLEAR (CLEAR); Color Urine LT. YELLOW (YELLOW); Glucose Urine UA NEGATIVE (NEGATIVE); Ketones Urine NEGATIVE (NEGATIVE); Leukocyte Esterase Urine NEGATIVE (NEGATIVE); Nitrite Urine NEGATIVE (NEGATIVE); Protein Urine NEGATIVE (NEG/TRACE); Urobilinogen Urine 0.2 EU/dL (0.2-1.0); pH Urine 7.5 (5.0-9.0)
[2022-10-01] MEDS: MAGNESIUM SULFATE IN WATER 50 ML IV (13:57)
[2022-10-01 13:58] LABS: Urine Microscopic Indicated NO
--- NOTE | 2022-10-01 14:01 | CT_ITS ---
The [address] [address] Patient Name: SARINA RODRIGUEZ MRN: [id number] date: 1960 Sex: M Assigned Patient Location: ER Current Patient Location: ER Accession/Order Number: [id number] Exam Date: 10/01/2022 14:10 Report Date: 10/01/2022 14:37 At the request of: JIGAR ACHARYA Procedure: CT head/brain wo con EXAM: CT head/brain wo con HISTORY: seizure hx of MS COMPARISON: None. TECHNIQUE: Axial CT images were obtained of the head without intravenous contrast. Multiplanar reconstructions were performed. FINDINGS: No acute intracranial hemorrhage. No acute loss of gonsales/white differentiation. Mild multifocal areas of chronic deep white matter hypoattenuation are present, which is nonspecific. The ventricles and sulci are normal in appearance. The osseous structures are unremarkable. No soft tissue abnormality identified. The paranasal sinuses and mastoid air cells are clear. CT/CT head/brain wo con IMPRESSION: 1. No acute intracranial abnormality. 2. Mild nonspecific chronic deep white matter disease. Electronically authenticated by: DINAH JONES Date: 10/01/2022 14:37
== END 2022-10-01 17:08 | disposition home or self-care (01) ==
PROVIDERS: Emergency Provider Emergency Medicine; PCP Nurse Practitioner Primary Care
DX: I95.9 Hypotension, unspecified (principal); E83.42 Hypomagnesemia; G35 Multiple sclerosis; Z79.899 Other long term (current) drug therapy; Z79.82 Long term (current) use of aspirin
CPT/HCPCS: 36415; 70450; 71045; 80053; 81003; 83605; 83735; 84484; 85025; 93005; 96361; 96365; 99285